=== PATIENT | male | born 1955 | race Caucasian/White ===

== ENCOUNTER → 2017-03-22 | Outpatient (CLI) | payer MEDICARE ==
--- NOTE | 2017-03-22 10:56 | RADIOLOGY REPORT (SQ) ---
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 Images reviewed with lung, soft tissue and bone windows. Reconstructed coronal a nd sagittal MPR images reviewed. All images stored on PACS. CT scan of the abdomen and pelvis performed with intravenous and with oral contrastusing helical scan carlie technique with dynamic intravenous contrast injection. Images reviewed with lung, soft tissue a nd bone windows. Reconstructed coronal and sagittal MPR images reviewed. Delayed images for evaluat ion of the urinary system also acquired and evaluated. All images stored on PACS. All CT scanners at this facility use dose modulation, iterative reconstruction, and/or weight based d osing when appropriate to reduce radiation dose to as low as reasonably achievable (ALARA). [facility]: Dose Right [facility]: CareDose [facility]: Dose Right [facility]: Teradose 4D [facility]: [employer] RADIATION DOSE: Up-to-date CT equipment and radiation dose reduction techniques were employed. CTDIv ol: 20.3 - 31.2 mGy. DLP: 4066 mGy-cm. . LIMITATIONS: None. FINDINGS: CHEST: LUNGS AND PLEURA: Lungs are hyperinflated from obstructive disease with increased interstitial markin gs around the periphery of both bases in the honeycomb pattern compatible with pulmonary fibrosis. No worrisome pulmonary nodules. No pleural effusion. No pneumothorax. HILAR AND MEDIASTINAL STRUCTURES: No identified masses or definite abnormal nodes. Stable 2.2 x 1.5 cm precarinal lymph node, stable 2.8 x 1.5 cm sub- carinal lymph node HEART AND VASCULAR STRUCTURES: No aneurysm or dissection. No central pulmonary emboli. No pericardi al effusion. HARDWARE: None. THYROID AND OTHER SOFT TISSUES: No masses. No adenopathy. BONES: Osteopenic, diffuse multilevel spondylotic change. OTHER: No other significant finding. ABDOMEN AND PELVIS: LIVER: Normal size. No masses or dilated ducts. SPLEEN: Normal size. No focal lesions. PANCREAS: No masses. No significant calcifications. No adjacent inflammation or peripancreatic fluid collections. Pancreatic duct not dilated. GALLBLADDER: Single large calcified stone in the gallbladder. No gallbladder wall thickening or ren cholecystic fluid. ADRENAL GLANDS: No significant masses or asymmetry. RIGHT KIDNEY AND URETER: No solid masses. No significant calcification. No hydronephrosis or hydroure ter. LEFT KIDNEY AND URETER: No solid masses. No significant calcification. No hydronephrosis or hydrouret er. AORTA AND VESSELS: No aneurysm. No dissection. Renal arteries, SMA, celiac without stenosis. RETROPERITONEUM: No retroperitoneal adenopathy, hemorrhage or masses. BOWEL AND PERITONEAL CAVITY: No masses or inflammatory changes. No free fluid or peritoneal masses. APPENDIX: Surgically absent ABDOMINAL WALL: No masses. No hernias. BONES: No significant or acute findings. PELVIS: No discrete bladder wall mass is identified. There is some mild thickening of the bladder ba se at the bladder trigone right slightly greater than left. No pelvic adenopathy. No free pelvic fl uid. IMPRESSION: No CT evidence of metastatic disease to the chest abdomen or pelvis given history of everette dder cancer. Subtle bladder wall thickening at the bladder trigone is present. Obstructive lung disease, pulmonary fibrosis Calcified stone in the gallbladder without gallbladder wall thickening. NORMAL CT OF THE ABDOMEN AND PELVIS WITH ORAL AND INTRAVENOUS CONTRAST. TECHNICAL DOCUMENTATION: JOB ID: [id number] Quality ID # [id number]: Final reports with documentation of one or more dose reduction techniques (e.g., Au tomated exposure control, adjustment of the mA and/or kV according to patient size, use of iterative reconstruction technique) 2010 [employer]- All Rights Reserved
== END ==
LOC: RAD 07:41
PROVIDERS: ATTEND Urology
DX: C67.0 Malignant neoplasm of trigone of bladder (principal)
CPT/HCPCS: 71260; 74177; 82565

== ENCOUNTER → 2017-06-01 | Outpatient (CLI) | payer MEDICARE ==
--- NOTE | 2017-06-01 15:51 | RADIOLOGY REPORT (SQ) ---
EXAM DESCRIPTION: U/S RETROPERITON (RENAL/AORTA) COMPLETED DATE/TIME: 06/01/2017 2:16 pm REASON FOR STUDY: MAL INES OF URINARY BLADDER, UNSPECIFIED SITE C67.9 MALIGNANT NEOPLASM OF BLADDER, UNSPECIFIED COMPARISON: None. TECHNIQUE: Dynamic and static grayscale images acquired of the kidneys and bladder and recorded on P ACS. Additional selected color Doppler and spectral images recorded. LIMITATIONS: None. FINDINGS: RIGHT KIDNEY: Normal size, 12.5 cm. Normal echogenicity. No solid or suspicious masses. No hydronephrosis. No calcifications. LEFT KIDNEY: Normal size, 12.8 cm. Normal echogenicity. No solid or suspicious masses. No hydronephr osis. No calcifications. BLADDER: Surgically absent OTHER FINDINGS: No other significant finding. IMPRESSION: Normal renal ultrasound. TECHNICAL DOCUMENTATION: JOB ID: [id number] [employer]- All Rights Reserved
== END ==
LOC: RAD 12:52
PROVIDERS: ATTEND Urology
DX: C67.9 Malignant neoplasm of bladder, unspecified (principal)
CPT/HCPCS: 76770

== ENCOUNTER 2020-10-12 17:12 | Inpatient (IN) | payer MEDICARE ==
[2020-10-12 18:50] LABS: ABSOLUTE BASOPHILS # (AUTO) 0.1 10^3/uL (0.0-0.2); ABSOLUTE MONOCYTES (AUTO) 0.6 10^3/uL (0.1-1.4); EOSINOPHILS % (AUTO) 0.5 % (0-6); HEMOGLOBIN 18.6 g/dL (13.5-17.0); LYMPHOCYTES % (AUTO) 15.2 % (13-45); MEAN CORPUSCULAR HEMOGLOBIN 28.1 pg (27.0-33.4); MEAN CORPUSCULAR HGB CONC 32.3 g/dL (32.0-36.0); MEAN CORPUSCULAR VOLUME 87 fl (80-97); MONOCYTES % (AUTO) 9.5 % (3-13); PLATELET COUNT 144 10^3/uL (150-450); RED BLOOD COUNT 6.61 10^6/uL (4.35-5.55); SEGMENTED NEUTROPHILS % (AUTO) 72.8 % (42-78); TOTAL CELLS COUNTED % (AUTO) 100 %; WHITE BLOOD COUNT 6.8 10^3/uL (4.0-10.5)
[2020-10-12 18:51] LABS: HEMATOCRIT 57.5 % (37.9-51.0)
--- NOTE | 2020-10-12 18:54 | RADIOLOGY REPORT (SQ) ---
EXAM DESCRIPTION: CHEST SINGLE VIEW IMAGES COMPLETED DATE/TIME: 10/12/2020 3:40 pm REASON FOR STUDY: shortness of breath COMPARISON: CT 03/22/2017 and single-view chest 09/15/2016 EXAM PARAMETERS: NUMBER OF VIEWS: One view. TECHNIQUE: Single frontal radiographic view of the chest acquired. RADIATION DOSE: NA LIMITATIONS: External leads partially obscure underlying structures. FINDINGS: LUNGS AND PLEURA: Diffuse opacities in the mid to lower left lung. No significant pleural effusion or pneumothorax. MEDIASTINUM AND HILAR STRUCTURES: No masses. Contour normal. HEART AND VASCULAR STRUCTURES: Heart is enlarged. BONES: No acute findings. HARDWARE: None in the chest. OTHER: No other significant finding. IMPRESSION: Asymmetric left lung opacities move concerning for acute infection. This may be superim posed on some mild chronic fibrotic change. TECHNICAL DOCUMENTATION: JOB ID: [id number] 2010 [employer]- All Rights Reserved Reading location - IP/workstation name: [email or web address]
[2020-10-12 18:58] LABS: ALBUMIN 3.8 g/dL (3.5-5.0); ALKALINE PHOSPHATASE 89 U/L (38-126); ANION GAP 8 (5-19); ASPARTATE AMINO TRANSFERASE 29 U/L (17-59); BILIRUBIN,DIRECT 0.9 mg/dL (0.0-0.4); BLOOD UREA NITROGEN 22 mg/dL (7-20); CALCIUM 9.5 mg/dL (8.4-10.2); CARBON DIOXIDE 30 mmol/L (22-30); CHLORIDE 97 mmol/L (98-107); GLUCOSE 112 mg/dL (75-110); TOTAL PROTEIN 7.2 g/dL (6.3-8.2)
--- NOTE | 2020-10-12 20:41 | ER Document Report ---
ED General - General Chief Complaint: Shortness Of Breath Stated Complaint: SHORT OF BREATH,LEG SWELLING Time Seen by Provider: 10/12/20 19:42 TRAVEL OUTSIDE OF THE [place] IN LAST 30 DAYS: No - HPI Notes: Patient is a 65-year-old male with a history of pulmonary fibrosis who presents to the emergency department for evaluation of shortness of breath. Is been going on for a little over a week. He has had swelling in his legs for about 2 weeks. He states he had some chest pain earlier today but denies any chest pain at this time. He described it as a tight and heavy sensation. He was short of breath with any sort of exertion. He does have some orthopnea. He does not wear oxygen at home. - Related Data Allergies/Adverse Reactions: No Known Allergies Allergy (Verified 09/09/16 13:59) Past Medical History - General Information source: Patient - Social History Smoking Status: Former Smoker Family History: Reviewed & Not Pertinent, Other - Past Medical History Cardiac Medical History: Reports: Hx Congestive Heart Failure - EF of 50% on a stress test in the past Denies: Hx Coronary Artery Disease, Hx Heart Attack, Hx Hypertension Pulmonary Medical History: Denies: Hx Asthma, Hx Bronchitis, Hx COPD, Hx Pneumonia Neurological Medical History: Denies: Hx Cerebrovascular Accident, Hx Seizures Endocrine Medical History: Reports: Hx Hyperthyroidism - TREATED WITH EASTMAN YEARS AGO, HAS BEEN ON THYROID SUPPLEMENTATION. Malignancy Medical History: Reports Other - Bladder cancer Musculoskeletal Medical History: Denies Hx Arthritis Traumatic Medical History: Reports: Hx Traumatic Brain Injury Past Surgical History: Reports: Hx Appendectomy, Other - Cystectomy/urostomy - Immunizations Hx Diphtheria, Pertussis, Tetanus Vaccination: Yes - 2012 Review of Systems - Review of Systems Constitutional: No symptoms reported EENT: No symptoms reported Cardiovascular: See HPI Respiratory: See HPI Gastrointestinal: No symptoms reported Genitourinary: No symptoms reported Musculoskeletal: No symptoms reported Skin: No symptoms reported Neurological/Psychological: No symptoms reported Physical Exam - Vital signs Vitals: Temp Pulse Resp BP Pulse Ox 97.5 F 81 20 119/75 92 10/12/20 17:56 10/12/20 17:56 10/12/20 17:56 10/12/20 17:56 10/12/20 17:56 - Notes Notes: This is a 65-year-old male who appears his stated age, in no acute distress. Vital signs reviewed, please refer to chart. Head is normocephalic, atraumatic. Pupils equal round, reactive to light. Neck is supple without meningismus. Heart is regular rate and rhythm. Lungs reveal bibasilar Rales. Abdomen is soft, nontender, normoactive bowel sounds throughout. Urostomy noted anteriorly with yellow urine, clear draining. No skin changes, stoma pink. Extremities without cyanosis, clubbing. 3+ pitting edema noted all the way to the thighs bilaterally. Posterior calves are nontender. Peripheral pulses are equal. Skin is warm and dry. Patient is awake, alert, neurological exam is nonfocal. Course - Re-evaluation Re-evalutation: 10/12/20 20:48 Patient presents emergency department for evaluation. Laboratory investigations as ordered through protocol. I am concerned about the possibility of congestive heart failure in this patient. He does not take any diuretics regularly.. He does have a significant oxygen requirement at this time. I placed an order for a Covid test as well. Patient is currently stable, we will continue to monitor. 10/12/20 22:43 Covid test is negative. X-ray was read by radiology as showing a possible atypical infectious component. To my eye I suspect more in the way of pulmonary vascular congestion, but will cover with antibiotics. His respiratory panel and Covid test are negative. ABG shows significant hypoxemia. At this time the patient is breathing comfortably, not tachypneic, and has an O2 saturation of 96% on 6 L. I suspect the patient has a baseline oxygen requirement, especially given his hemoglobin. I will contact medicine for admission. 10/12/20 22:49 Dr. Alejandro will come down and evaluate the patient. - Vital Signs Vital signs: Temp Pulse Resp BP Pulse Ox 98 F 81 20 119/75 96 10/12/20 20:38 10/12/20 17:56 10/12/20 17:56 10/12/20 17:56 10/12/20 20:38 - Laboratory Results Result Diagrams: 10/12/20 18:10 10/12/20 18:10 Laboratory Results Interpreted: 10/12/20 10/12/20 10/12/20 18:10 18:10 18:10 RBC 6.61 H Hgb 18.6 H Hct 57.5 H RDW 17.0 H Plt Count 144 L ABG pO2 ABG HCO3 ABG O2 Saturation Sodium 135.1 L Chloride 97 L BUN 22 H Glucose 112 H Total Bilirubin 2.0 H Direct Bilirubin 0.9 H NT-Pro-B Natriuret Pep 2220 H Urine Protein Urine Blood Urine Urobilinogen Ur Leukocyte Esterase 10/12/20 10/12/20 20:45 20:53 RBC Hgb Hct RDW Plt Count ABG pO2 62.4 L ABG HCO3 24.8 H ABG O2 Saturation 92.4 L Sodium Chloride BUN Glucose Total Bilirubin Direct Bilirubin NT-Pro-B Natriuret Pep Urine Protein 100 H Urine Blood SMALL H Urine Urobilinogen 4.0 H Ur Leukocyte Esterase MODERATE H Critical Laboratory Results Reviewed: No Critical Results - Radiology Results Radiology Results Interpreted: 10/12/20 20:49 Chest X-Ray 10/12/20 18:28 IMPRESSION: Asymmetric left lung opacities move concerning for acute infection. This may be superimposed on some mild chronic fibrotic change. Critical Radiology Results Reviewed: No Critical Results Discharge - Discharge Clinical Impression: Hypoxemia, Congestive heart failure Condition: Stable Disposition: ADMITTED INPATIENT Admitting Provider: [facility] Admitted: Telemetry
[2020-10-12 21:10] LABS: ARTERIAL BLOOD BASE EXCESS 0.6 mmol/L; ARTERIAL BLOOD H2CO3 1.17 mmol/L (1.05-1.35); ARTERIAL BLOOD HCO3 24.8 mmol/L (20-24); ARTERIAL BLOOD O2 SATURATION 92.4 % (94-98); ARTERIAL BLOOD PCO2 38.9 mmHg (35-45); ARTERIAL BLOOD PH 7.42 (7.35-7.45); ARTERIAL BLOOD PO2 62.4 mmHg (80-100)
[2020-10-12 21:22] LABS: ARTERIAL BLOOD FIO2 6LNC
[2020-10-12 21:34] LABS: APPEARANCE,URINE CLOUDY; BILIRUBIN,URINE NEGATIVE (NEGATIVE); COLOR,URINE AMBER; GLUCOSE, URINE NEGATIVE (NEGATIVE); KETONES,URINE NEGATIVE (NEGATIVE); LEUKOCYTE ESTERASE,URINE MODERATE (NEGATIVE); NITRITE,URINE NEGATIVE (NEGATIVE); PROTEIN,URINE 100 mg/dL (NEGATIVE); URINE SPECIFIC GRAVITY 1.015
[2020-10-12] MEDS ORDERED: FUROSEMIDE INJ/PF 40 MG/4 ML SDV IV ONE ×3 (22:14→23:45)
[2020-10-12] MEDS ORDERED: AZITHROMYCIN INJ 500 MG VIAL IV ONE ×2 (22:38→23:00)
[2020-10-12] MEDS ORDERED: CEFTRIAXONE 1 GM/D5W RTU 1 GM/50 ML RTUPB IV ONE (22:38)
[2020-10-12] MEDS ORDERED: FAMOTIDINE 20 MG TABLET PO ONE (23:45)
[2020-10-12] MEDS ORDERED: ACETAMINOPHEN 325 MG TABLET PO PRN (23:51)
[2020-10-12] MEDS ORDERED: ONDANSETRON HCL INJ/PF 4 MG/2 ML SDV IV PRN (23:51)
--- NOTE | 2020-10-13 00:08 | PDOC H&P ---
History of Present Illness Patient complains of: Worsening shortness of breath, bilateral leg swelling History of Present Illness: WINNIE OJEDA is a 65 year old male with a history of pulmonary fibrosis who was previously on home oxygen and hypothyroidism now presents to the ED with a progressively worsening shortness of breath and leg swelling. Patient states that his shortness of breath was initially with exertion but in the past 2 weeks has worsened to a level where he becomes short of breath even at rest. He also states that he has on and off leg swelling but over the past 2 weeks has been having markedly increased worsening of bilateral leg swelling. He states that he was previously on home oxygen for almost a year for pulmonary fibrosis but discontinued it by himself stating that he got tired of it. He does not remember how much oxygen he was on. He has been having occasional cough productive of scanty sputum but denies any chest pain, fever, chills, nausea, vomiting, dizziness, palpitation, orthopnea, PND, weakness of extremities or any change in his bowel habits. Past Medical History Cardiac Medical History: Reports: Congestive Heart Failure - EF of 50% on a stress test in the past Denies: Coronary Artery Disease, Myocardial Infarction, Hypertension Pulmonary Medical History: Denies: Asthma, Bronchitis, Chronic Obstructive Pulmonary Disease (COPD), Pneumonia Neurological Medical History: Denies: Seizures Endocrine Medical History: Reports: Hyperthyroidism - TREATED WITH EASTMAN YEARS AGO, HAS BEEN ON THYROID SUPPLEMENTATION. Malignancy Medical History: Reports: Other - Bladder cancer Musculoskeltal Medical History: Denies: Arthritis Traumatic Medical History: Reports: Traumatic Brain Injury Hematology: Denies: Anemia Past Surgical History Past Surgical History: Reports: Appendectomy, Other - Cystectomy/urostomy Social History Information Source: Patient Smoking Status: Former Smoker Electronic Cigarette use?: No Frequency of Alcohol Use: None Hx Recreational Drug Use: No Drugs: None Hx Prescription Drug Abuse: No - Advance Directive Resuscitation Status: Full Code Family History Family History: Reviewed & Not Pertinent, Other Parental Family History Reviewed: Yes Children Family History Reviewed: Yes Sibling(s) Family History Reviewed.: Yes Medication/Allergy Home Medications: Levothyroxine Sodium [Synthroid 0.1 mg Tablet] 200 mcg PO DAILY #60 tablet 09/22/12 Allergies/Adverse Reactions: No Known Allergies Allergy (Verified 09/09/16 13:59) Review of Systems Constitutional: PRESENT: as per HPI Eyes: ABSENT: visual disturbances Ears: ABSENT: hearing changes Cardiovascular: PRESENT: as per HPI Respiratory: PRESENT: as per HPI Gastrointestinal: ABSENT: abdominal pain, constipation, diarrhea, hematemesis, hematochezia, nausea, vomiting Genitourinary: PRESENT: dysuria. ABSENT: hematuria Musculoskeletal: ABSENT: joint swelling Integumentary: ABSENT: rash, wounds Neurological: ABSENT: abnormal gait, abnormal speech, confusion, dizziness, focal weakness, syncope Psychiatric: ABSENT: anxiety, depression, homidical ideation, suicidal ideation Endocrine: ABSENT: polydipsia, polyuria Hematologic/Lymphatic: ABSENT: easy bleeding, easy bruising Physical Exam Vital Signs: Temp Pulse Resp BP Pulse Ox 98 F 81 20 119/75 96 10/12/20 20:38 10/12/20 17:56 10/12/20 17:56 10/12/20 17:56 10/12/20 20:38 Intake & Output 10/11/20 10/12/20 10/13/20 06:59 06:59 06:59 Weight 110.677 kg Additional comments: GENERAL APPEARANCE: Alert and oriented x3, in no acute distress HEENT: Normocephalic and atraumatic. No scleral icterus. Moist oral mucosa NECK: Supple. No lymphadenopathy or tenderness. Has elevated JVD CHEST: Symmetric. Nontender to palpation. LUNGS: Clear with good air entry bilaterally. Has coarse crackles on the left lower lung field HEART: Regular rate and rhythm with normal S1 and S2. No murmurs, gallops, or rubs. ABDOMEN: Flat, soft, active bowel sounds, no direct or rebound tenderness. No organomegaly detected. No CVA tenderness EXTREMITIES: No cyanosis, clubbing. Has +3 pitting edema up to the level of knees bilaterally MUSCULOSKELETAL: No deformity, atrophy or swelling noted PSYCHIATRIC: Recent and remote memory is intact. SKIN: Warm, dry, and well perfused. No lesions or rashes are noted. NEUROLOGIC: No focal sensory or motor deficits are noted. Results Laboratory Results: 10/12/20 18:10 10/12/20 18:10 10/12/20 10/12/20 10/12/20 18:10 18:10 18:10 WBC 6.8 RBC 6.61 H Hgb 18.6 H Hct 57.5 H MCV 87 MCH 28.1 MCHC 32.3 RDW 17.0 H Plt Count 144 L Seg Neutrophils % 72.8 Carbonic Acid HCO3/H2CO3 Ratio ABG pH ABG pCO2 ABG pO2 ABG HCO3 ABG O2 Saturation ABG Base Excess FiO2 Sodium 135.1 L Potassium 4.0 Chloride 97 L Carbon Dioxide 30 Anion Gap 8 BUN 22 H Creatinine 1.03 Est GFR ( Amer) > 60 Glucose 112 H Lactic Acid 1.6 Calcium 9.5 Total Bilirubin 2.0 H AST 29 Alkaline Phosphatase 89 Total Protein 7.2 Albumin 3.8 Urine Color Urine Appearance Urine pH Ur Specific Surry Urine Protein Urine Glucose (UA) Urine Ketones Urine Blood Urine Nitrite Ur Leukocyte Esterase Urine WBC (Auto) Urine RBC (Auto) 10/12/20 10/12/20 20:45 20:53 WBC RBC Hgb Hct MCV MCH MCHC RDW Plt Count Seg Neutrophils % Carbonic Acid 1.17 HCO3/H2CO3 Ratio 21:1 ABG pH 7.42 ABG pCO2 38.9 ABG pO2 62.4 L ABG HCO3 24.8 H ABG O2 Saturation 92.4 L ABG Base Excess 0.6 FiO2 6LNC Sodium Potassium Chloride Carbon Dioxide Anion Gap BUN Creatinine Est GFR ( Amer) Glucose Lactic Acid Calcium Total Bilirubin AST Alkaline Phosphatase Total Protein Albumin Urine Color ELIZABETH Urine Appearance CLOUDY Urine pH 7.0 Ur Specific [place] 1.015 Urine Protein 100 H Urine Glucose (UA) NEGATIVE Urine Ketones NEGATIVE Urine Blood SMALL H Urine Nitrite NEGATIVE Ur Leukocyte Esterase MODERATE H Urine WBC (Auto) 66 Urine RBC (Auto) 10/12/20 10/12/20 18:10 18:10 Troponin I < 0.012 NT-Pro-B Natriuret Pep 2220 H Impressions: Chest X-Ray 10/12/20 18:28 IMPRESSION: Asymmetric left lung opacities move concerning for acute infection. This may be superimposed on some mild chronic fibrotic change. Assessment and Plan - Diagnosis (1) Acute and chronic respiratory failure with hypoxia Is this a current diagnosis for this admission?: Yes Plan: Patient presents with worsening of shortness of breath Has a known history of pulmonary fibrosis and was previously on home oxygen ABG showed pH/PCO2/PO2 of 7.4 respectively while on [address] of the chest consistent with chronic fibrotic changes with new masses on the left lower lung concerning for malignancy Continue intranasal oxygen use, may need transitioning to Oxymizer or high flow oxygen Closely monitor respiratory parameters for any sign of impending failure Continue heart failure as stated below (2) New onset of congestive heart failure Is this a current diagnosis for this admission?: Yes Plan: Likely right-sided heart failure/cor pulmonale due to pulmonary hypertension from extensive lung fibrosis Patient has elevated JVD, has bilateral pitting edema, elevated BNP of 2220 Chest imaging both x-ray and CT showed extensive fibrosis with no significant signs of volume overload Has markedly increased hemoglobin and hematocrit Continue intranasal oxygen Strict I&O's, daily weights and fluid restriction Started on Lasix 40 mg IV twice daily Continue telemetry monitoring Echocardiogram in the morning Consulted cardiology (3) Secondary polycythemia Is this a current diagnosis for this admission?: Yes Plan: Likely due to pulmonary hypertension with cor pulmonale of the right upper Continue treating underlying cause Closely monitor H&H Continue intranasal oxygen (4) Pulmonary fibrosis Is this a current diagnosis for this admission?: Yes Plan: Patient with a known history of fibrosis Was previously on home oxygen Current imaging shows advanced pulmonary fibrosis Likely cause of new onset heart failure Patient likely to need long-term home oxygen Consider pulmonary consult (5) Urinary tract infection Is this a current diagnosis for this admission?: Yes Plan: UA was suggestive of UTI Currently on ceftriaxone Follow-up with urine culture/sensitivity and adjust antibiotics accordingly (6) Obesity (BMI 30-39.9) Is this a current diagnosis for this admission?: Yes Plan: Partly due to volume overload from new onset heart failure Continue IV diuretics, monitor weight daily (7) Hypothyroidism Is this a current diagnosis for this admission?: Yes Plan: Currently denies hypo or hyperthyroid symptoms Obtain TSH in the morning Continue levothyroxine (8) Lung mass Is this a current diagnosis for this admission?: Yes Plan: CT chest showed 2 lung masses near left diaphragm Concerning for malignancy Consider IR guided biopsy once hypoxic respiratory failure improves Consider pulmonary consult - Time Time Spent with patient: 35 or more minutes Total Critical Time (Minutes): 45 Medications reviewed and adjusted accordingly: Yes Anticipated Discharge Disposition: Home, Self Care Anticipated Discharge Timeframe: within 72 hours - Inpatient Certification Based on my medical assessment, after consideration of the patient's comorbidities, presenting symptoms, or acuity I expect that the services needed warrant INPATIENT care.: Yes I certify that my determination is in accordance with my understanding of Medicare's requirements for reasonable and necessary INPATIENT services [42 CFR 412.3e].: Yes Medical Necessity: Significant Comorbidiites Make Outpatient Treatment Too Risky, Need Close Monitoring Due to Risk of Patient Decompensation, Need For Continuous Telemetry Monitoring, Need for IV Antibiotics, Risk of Complication if Not Cared For in Hospital Post Hospital Care: D/C or Transfer Summary
--- NOTE | 2020-10-13 01:15 | RADIOLOGY REPORT (SQ) ---
CLINICAL INDICATION: Hypoxic respiratory failure. . TECHNIQUE: CT arteriography was obtained of the chest with multiplanar MIP and/or 3-D angiographic reconstructions. This exam was performed according to our departmental dose-optimization program, which includes automated exposure control, adjustment of the mA and/or kV according to patient size and/or use of iterative reconstruction techniques. COMPARISON: None available. CORRELATION: None. FINDINGS: Adequate contrast bolus. Average Hounsfield unit measurement within main pulmonary artery segment of 331. Artifact from venous opacification. Motion artifact There is no evidence of pulmonary embolus. Extrinsic compression left lung base with resultant flow artifact. Thoracic aorta is of normal caliber. Thoracic aorta is unopacified with intravascular contrast The heart is enlarged with coronary calcification. No pericardial effusion. Enlarged left hilar lymph node measuring 2.1 x 2.9 cm. The lungs show severe emphysematous changes bilaterally with fibrotic changes. There is a rounded presumed mass lesion left upper lobe anteriorly measuring 5.5 x 5.8 cm, series 4 image 49. There is a second masslike abnormality left lower lobe posterior medial measuring approximately 4.2 x 5.8 cm, series 3 image 78. Pleural thickening is seen left hemithorax. The loculated fluid. No acute process is seen within the right lung. Visualized abdominal contents demonstrate fullness to the left adrenal. A nodule is identified within the retroperitoneal fat posterior to the left kidney measuring 1.4 x 1.9 cm series 3 image 130. Cholelithiasis. Visualized bones demonstrate age-appropriate osteoarthritis. Old posttraumatic change.. IMPRESSION: No evidence of pulmonary embolus. Chronic fibrotic changes bilaterally.. There are 2 rounded mass lesions identified left hemithorax, suspicious for neoplasm. Left pleural reaction or perhaps loculated effusion. Prominent left hilar lymph node, suspicious for regional spread of disease. Left adrenal mass, viewed with suspicion for remote metastatic disease given the pulmonary lesions . Addendum: Prior CT September 15, 2016 has been retrieved. The fibrotic changes were present on that examination. The pleural-based mass lesions and pleural reaction left hemithorax are adverse change from prior. The prominent left hilar lymph node is adverse change from prior..
[2020-10-13 08:39] LABS: ABSOLUTE EOSINOPHILS # (AUTO) 0.1 10^3/uL (0.0-0.6); ABSOLUTE LYMPHOCYTES (AUTO) 1.1 10^3/uL (0.5-4.7); ABSOLUTE MONOCYTES (AUTO) 0.6 10^3/uL (0.1-1.4); ABSOLUTE NEUT (AUTO) 3.7 10^3/uL (1.7-8.2); BASOPHILS % (AUTO) 0.4 % (0-2); EOSINOPHILS % (AUTO) 0.9 % (0-6); HEMOGLOBIN 18.7 g/dL (13.5-17.0); LYMPHOCYTES % (AUTO) 20.6 % (13-45); MEAN CORPUSCULAR HEMOGLOBIN 28.4 pg (27.0-33.4); MEAN CORPUSCULAR HGB CONC 32.4 g/dL (32.0-36.0); MEAN CORPUSCULAR VOLUME 88 fl (80-97); MONOCYTES % (AUTO) 10.2 % (3-13); PLATELET COUNT 132 10^3/uL (150-450); RED BLOOD COUNT 6.58 10^6/uL (4.35-5.55); RED CELL DISTRIBUTION WIDTH 17.1 % (11.5-14.0); SEGMENTED NEUTROPHILS % (AUTO) 67.9 % (42-78); TOTAL CELLS COUNTED % (AUTO) 100 %; WHITE BLOOD COUNT 5.5 10^3/uL (4.0-10.5)
[2020-10-13 08:49] LABS: HEMATOCRIT 57.7 % (37.9-51.0)
[2020-10-13 08:57] LABS: ANION GAP 10 (5-19)
[2020-10-13 09:21] LABS: BLOOD UREA NITROGEN 20 mg/dL (7-20); CALCIUM 9.6 mg/dL (8.4-10.2); CARBON DIOXIDE 30 mmol/L (22-30); CHLORIDE 100 mmol/L (98-107); GLUCOSE 95 mg/dL (75-110); POTASSIUM 4.8 mmol/L (3.6-5.0)
[2020-10-13] MEDS: FUROSEMIDE INJ/PF 40 MG/4 ML SDV IV SCH ×2 (11:25→23:54)
[2020-10-13] MEDS: FAMOTIDINE 20 MG TABLET PO SCH ×2 (11:26→23:55)
[2020-10-13] MEDS: ENOXAPARIN SODIUM INJ 40 MG/0.4 ML DISP.SYRIN SUBCUT SCH (11:27)
[2020-10-13 12:00] LABS: FREE T3 1.57 pg/mL (2.77-5.27); FREE T4 (FREE THYROXINE) 0.76 ng/dL (0.78-2.19)
--- NOTE | 2020-10-13 15:24 | PDOC PROGRESS REPORT ---
Subjective Date:: 10/13/20 Subjective:: WINNIE OJEDA is a 65 year old male with a history of pulmonary fibrosis who was previously on home oxygen and hypothyroidism who was admitted 10/12/2020 with acute on chronic respiratory failure secondary to acute CHF exacerbation in the setting of pulmonary fibrosis. Patient was seen on morning rounds. He is found sitting up to the edge of the bed on supplemental oxygen via nonrebreather at 15 L/min; SPO2 was 100%. Patient was comfortable, speaking full sentences. He advised that he was previously prescribed home O2 for chronic respiratory failure secondary to pulmonary fibrosis and emphysema. He states that he became frustrated with oxygen equipment and took himself off of this a couple of years ago. He states that he is only begun to have trouble with dyspnea in the last 2 to 3 weeks. He notes that he had gradually worsening bilateral lower extremity edema over the same time period. He was transitioned to nasal cannula at 6 L/min gradually titrated down throughout my assessment. He was left on 3 L/min with an SPO2 of 94%. Continue to be conversational without increased work of breathing. He denies fever, chills, chest pain, palpitations, cough or orthopnea, abdominal pain, nausea vomiting or diarrhea. He has no other questions or concerns at this time. No concerns per nursing. Reason For Visit: ACUTE CHRONIC HYPOXIC RESPIRATORY FAILURE,NEW Physical Exam Vital Signs: Temp Pulse Resp BP Pulse Ox 97.3 F 79 20 118/83 92 10/13/20 11:38 10/13/20 11:38 10/13/20 11:38 10/13/20 11:38 10/13/20 11:38 Intake & Output 10/12/20 10/13/20 10/14/20 06:59 06:59 06:59 Intake Total 50 240 Output Total 700 350 Balance -650 -110 Weight 112 kg General appearance: PRESENT: no acute distress, cooperative, disheveled, obese, well-developed, well-nourished Head exam: PRESENT: atraumatic, normocephalic Eye exam: PRESENT: conjunctiva pink, EOMI, PERRLA. ABSENT: scleral icterus Mouth exam: PRESENT: moist, tongue midline Teeth exam: PRESENT: poor dentation Respiratory exam: PRESENT: crackles - Bibasilar, symmetrical, unlabored, other - Supplemental oxygen by nasal cannula. ABSENT: rales, rhonchi, wheezes Cardiovascular exam: PRESENT: RRR. ABSENT: diastolic murmur, rubs, systolic murmur Vascular exam: PRESENT: normal capillary refill GI/Abdominal exam: PRESENT: other - urostomy Extremities exam: PRESENT: full ROM, +2 edema - BLE pitting edema. ABSENT: calf tenderness, clubbing, pedal edema Neurological exam: PRESENT: alert, awake, oriented to person, oriented to place, oriented to time, oriented to situation, CN II-XII grossly intact. ABSENT: motor sensory deficit Psychiatric exam: PRESENT: appropriate affect, normal mood. ABSENT: homicidal ideation, suicidal ideation Skin exam: PRESENT: dry, intact, warm, other - Chronic venous stasis changes bilateral lower extremities.. ABSENT: cyanosis, rash Results Laboratory Results: 10/13/20 08:08 10/13/20 08:08 10/12/20 10/12/20 10/12/20 18:10 18:10 18:10 WBC 6.8 RBC 6.61 H Hgb 18.6 H Hct 57.5 H MCV 87 MCH 28.1 MCHC 32.3 RDW 17.0 H Plt Count 144 L Seg Neutrophils % 72.8 Carbonic Acid HCO3/H2CO3 Ratio ABG pH ABG pCO2 ABG pO2 ABG HCO3 ABG O2 Saturation ABG Base Excess FiO2 Sodium 135.1 L Potassium 4.0 Chloride 97 L Carbon Dioxide 30 Anion Gap 8 BUN 22 H Creatinine 1.03 Est GFR ( Amer) > 60 Glucose 112 H Lactic Acid 1.6 Calcium 9.5 Magnesium Total Bilirubin 2.0 H AST 29 Alkaline Phosphatase 89 Total Protein 7.2 Albumin 3.8 TSH Free T4 Free T3 pg/mL Urine Color Urine Appearance Urine pH Ur Specific [place] Urine Protein Urine Glucose (UA) Urine Ketones Urine Blood Urine Nitrite Ur Leukocyte Esterase Urine WBC (Auto) Urine RBC (Auto) 10/12/20 10/12/20 10/13/20 20:45 20:53 08:08 WBC 5.5 RBC 6.58 H Hgb 18.7 H Hct 57.7 H MCV 88 MCH 28.4 MCHC 32.4 RDW 17.1 H Plt Count 132 L Seg Neutrophils % 67.9 Carbonic Acid 1.17 HCO3/H2CO3 Ratio 21:1 ABG pH 7.42 ABG pCO2 38.9 ABG pO2 62.4 L ABG HCO3 24.8 H ABG O2 Saturation 92.4 L ABG Base Excess 0.6 FiO2 6LNC Sodium Potassium Chloride Carbon Dioxide Anion Gap BUN Creatinine Est GFR ( Amer) Glucose Lactic Acid Calcium Magnesium Total Bilirubin AST Alkaline Phosphatase Total Protein Albumin TSH Free T4 Free T3 pg/mL Urine Color ELIZABETH Urine Appearance CLOUDY Urine pH 7.0 Ur Specific [place] 1.015 Urine Protein 100 H Urine Glucose (UA) NEGATIVE Urine Ketones NEGATIVE Urine Blood SMALL H Urine Nitrite NEGATIVE Ur Leukocyte Esterase MODERATE H Urine WBC (Auto) 66 Urine RBC (Auto) 10/13/20 10/13/20 10/13/20 08:08 08:08 08:08 WBC RBC Hgb Hct MCV MCH MCHC RDW Plt Count Seg Neutrophils % Carbonic Acid HCO3/H2CO3 Ratio ABG pH ABG pCO2 ABG pO2 ABG HCO3 ABG O2 Saturation ABG Base Excess FiO2 Sodium 139.9 Potassium 4.8 Chloride 100 Carbon Dioxide 30 Anion Gap 10 BUN 20 Creatinine 1.10 Est GFR ( Amer) > 60 Glucose 95 Lactic Acid Calcium 9.6 Magnesium 1.7 Total Bilirubin AST Alkaline Phosphatase Total Protein Albumin TSH 13.70 H Free T4 0.76 L Free T3 pg/mL 1.57 L Urine Color Urine Appearance Urine pH Ur Specific [place] Urine Protein Urine Glucose (UA) Urine Ketones Urine Blood Urine Nitrite Ur Leukocyte Esterase Urine WBC (Auto) Urine RBC (Auto) 10/12/20 10/12/20 10/13/20 18:10 18:10 02:06 Troponin I < 0.012 < 0.012 NT-Pro-B Natriuret Pep 2220 H 10/13/20 10/13/20 10:33 12:35 Troponin I Cancelled < 0.012 NT-Pro-B Natriuret Pep Impressions: Chest/Abdomen CTA 10/12/20 00:00 IMPRESSION: No evidence of pulmonary embolus. Chronic fibrotic changes bilaterally.. There are 2 rounded mass lesions identified left hemithorax, suspicious for neoplasm. Left pleural reaction or perhaps loculated effusion. Prominent left hilar lymph node, suspicious for regional spread of disease. Left adrenal mass, viewed with suspicion for remote metastatic disease given the pulmonary lesions . Addendum: Prior CT September 15, 2016 has been retrieved. The fibrotic changes were present on that examination. The pleural-based mass lesions and pleural reaction left hemithorax are adverse change from prior. The prominent left hilar lymph node is adverse change from prior.. Chest X-Ray 10/12/20 18:28 IMPRESSION: Asymmetric left lung opacities move concerning for acute infection. This may be superimposed on some mild chronic fibrotic change. Assessment and Plan - Diagnosis (1) Acute and chronic respiratory failure with hypoxia Is this a current diagnosis for this admission?: Yes Plan: Multifactorial secondary to new onset/acute CHF in the setting of emphysema and pulmonary fibrosis. Patient presents with worsening of shortness of breath Has a known history of pulmonary fibrosis and was previously on home oxygen ABG showed pH/PCO2/PO2 of 7.4 respectively while on [address] of the chest consistent with chronic fibrotic changes with new masses on the left lower lung concerning for malignancy Management as below. (2) New onset of congestive heart failure Is this a current diagnosis for this admission?: Yes Plan: Likely right-sided heart failure/cor pulmonale due to pulmonary hypertension from extensive lung fibrosis Patient has elevated JVD, has bilateral pitting edema proBNP of 2220 Chest imaging both x-ray and CT showed extensive fibrosis with no significant signs of volume overload Echocardiogram pending Continue telemetry monitoring Start low dose Toprol XL Avoid ALFA/ARB until echo; may benefit from Entresto Continue Lasix 40 mg IV twice daily Strict I&O's, daily weights Cardiac diet and fluid restriction (3) Lung mass Is this a current diagnosis for this admission?: Yes Plan: CT chest showed 2 lung masses near left diaphragm Concerning for malignancy Consider IR guided biopsy once hypoxic respiratory failure improves Consider pulmonary consult (4) Pulmonary fibrosis Is this a current diagnosis for this admission?: Yes Plan: Patient with a known history of fibrosis Was previously on home oxygen Current imaging shows advanced pulmonary fibrosis Likely cause of new onset heart failure Patient likely to need long-term home oxygen Consider pulmonary consult (5) Secondary polycythemia Is this a current diagnosis for this admission?: Yes Plan: Likely due to pulmonary hypertension with cor pulmonale of the right upper Continue treating underlying cause Closely monitor H&H Continue intranasal oxygen (6) Urinary tract infection Is this a current diagnosis for this admission?: Yes Plan: UA was suggestive of UTI Urine culture w/ 2 strands Gram Negative Rods Blood culture pending Continue on ceftriaxone Follow-up with urine culture/sensitivity and adjust antibiotics accordingly (7) Hypothyroidism Is this a current diagnosis for this admission?: Yes Plan: Currently denies hypo or hyperthyroid symptoms Thyroid panel confirms under treated; ? medication compliance. Continue levothyroxine Close PCP follow up (8) Obesity (BMI 30-39.9) Is this a current diagnosis for this admission?: Yes Plan: Partly due to volume overload from new onset heart failure Continue IV diuretics, monitor weight daily Cardiac diet - Time Time Spent with patient: 35 or more minutes Medications reviewed and adjusted accordingly: Yes Anticipated Discharge Disposition: Home with Home Health Anticipated Discharge Timeframe: TBD
--- NOTE | 2020-10-13 20:36 | EKG REPORT ---
SEVERITY:- ABNORMAL ECG - SINUS RHYTHM ATRIAL PREMATURE COMPLEX INFERIOR INFARCT, AGE INDETERMINATE ANTERIOR INFARCT, OLD : Confirmed by: Carlee Burleson MD 13-Oct-2020 20:35:01
[2020-10-13] MEDS ORDERED: AZITHROMYCIN 500 MG in DEXTROSE 5%-WATER 250 ML IV SCH (22:00)
[2020-10-13] MEDS ORDERED: CEFTRIAXONE 1 GM/D5W RTU 1 GM/50 ML RTUPB IV SCH (22:00)
[2020-10-14] MEDS ORDERED: CEFTRIAXONE 1 GM/D5W RTU 1 GM/50 ML RTUPB IV ONE (03:00)
[2020-10-14 05:37] LABS: HEMATOCRIT 52.6 % (37.9-51.0); MEAN CORPUSCULAR HEMOGLOBIN 28.4 pg (27.0-33.4); MEAN CORPUSCULAR HGB CONC 32.3 g/dL (32.0-36.0); MEAN CORPUSCULAR VOLUME 88 fl (80-97); PLATELET COUNT 113 10^3/uL (150-450); RED BLOOD COUNT 5.98 10^6/uL (4.35-5.55); RED CELL DISTRIBUTION WIDTH 17.3 % (11.5-14.0); WHITE BLOOD COUNT 5.3 10^3/uL (4.0-10.5)
[2020-10-14] MEDS: LEVOTHYROXINE SODIUM 0.1 MG TABLET PO SCH (05:56)
[2020-10-14 05:58] LABS: ANION GAP 6 (5-19); BLOOD UREA NITROGEN 20 mg/dL (7-20); CALCIUM 8.8 mg/dL (8.4-10.2); CARBON DIOXIDE 30 mmol/L (22-30); CHLORIDE 101 mmol/L (98-107); GLUCOSE 84 mg/dL (75-110); POTASSIUM 4.3 mmol/L (3.6-5.0)
[2020-10-14] MEDS ORDERED: LEVOTHYROXINE SODIUM 0.1 MG TABLET PO SCH (06:00)
[2020-10-14] MEDS: ENOXAPARIN SODIUM INJ 40 MG/0.4 ML DISP.SYRIN SUBCUT SCH (09:02)
[2020-10-14] MEDS: FUROSEMIDE INJ/PF 40 MG/4 ML SDV IV SCH ×2 (09:10→21:54)
[2020-10-14] MEDS: FAMOTIDINE 20 MG TABLET PO SCH ×2 (09:10→21:55)
--- NOTE | 2020-10-14 15:45 | PDOC PROGRESS REPORT ---
Subjective Date:: 10/14/20 Subjective:: WINNIE OJEDA is a 65 year old male with a history of pulmonary fibrosis who was previously on home oxygen and hypothyroidism who was admitted 10/12/2020 with acute on chronic respiratory failure secondary to acute CHF exacerbation in the setting of pulmonary fibrosis. Patient was seen on morning rounds. He is found sitting up to the edge of the bed on supplemental oxygen via nasal cannula at 4 L/min. Patient was comfortable, speaking full sentences. He reports that his breathing and bilateral lower leg edema is improved today. He does continue to have left posterior chest wall pain that occasionally radiates to his shoulder. He asks multiple times to have his lipoma looked at; desires to have it removed while here in the hospital. Otherwise, he is feeling much better. Denies fever, chills, chest pain, palpitations, cough or orthopnea, abdominal pain, nausea vomiting or diarrhea. He has no other questions or concerns at this time. No concerns per nursing. Reason For Visit: ACUTE CHRONIC HYPOXIC RESPIRATORY FAILURE,NEW Physical Exam Vital Signs: Temp Pulse Resp BP Pulse Ox 97.6 F 70 18 103/73 91 L 10/14/20 12:03 10/14/20 14:00 10/14/20 12:03 10/14/20 12:03 10/14/20 13:54 Intake & Output 10/13/20 10/14/20 10/15/20 06:59 06:59 06:59 Intake Total 50 701 337 Output Total 700 2024 Balance -650 -1324 337 Weight 112 kg 112 kg 105.4 kg General appearance: PRESENT: no acute distress, cooperative, well-developed, well-nourished Head exam: PRESENT: atraumatic, normocephalic Eye exam: PRESENT: conjunctiva pink, EOMI, PERRLA. ABSENT: scleral icterus Mouth exam: PRESENT: moist, tongue midline Teeth exam: PRESENT: poor dentation Respiratory exam: PRESENT: clear to auscultation mariah, symmetrical, unlabored, other - Supplemental oxygen by nasal cannula. ABSENT: rales, rhonchi, wheezes Cardiovascular exam: PRESENT: RRR. ABSENT: diastolic murmur, rubs, systolic murmur Pulses: PRESENT: normal dorsalis pedis pul Vascular exam: PRESENT: normal capillary refill GI/Abdominal exam: PRESENT: other - Urostomy Rectal exam: PRESENT: deferred Extremities exam: PRESENT: full ROM, +2 edema - BLE; slightly decreased from yesterday.. ABSENT: calf tenderness, clubbing, pedal edema Musculoskeletal exam: PRESENT: ambulatory Neurological exam: PRESENT: alert, awake, oriented to person, oriented to place, oriented to time, oriented to situation, CN II-XII grossly intact. ABSENT: motor sensory deficit Psychiatric exam: PRESENT: appropriate affect, normal mood. ABSENT: homicidal ideation, suicidal ideation Skin exam: PRESENT: dry, intact, warm, other - Chronic venous stasis changes bilateral lower extremities. ABSENT: cyanosis, rash Results Laboratory Results: 10/14/20 04:45 10/14/20 04:45 10/14/20 10/14/20 04:45 04:45 WBC 5.3 RBC 5.98 H Hgb 17.0 Hct 52.6 H MCV 88 MCH 28.4 MCHC 32.3 RDW 17.3 H Plt Count 113 L Sodium 136.7 L Potassium 4.3 Chloride 101 Carbon Dioxide 30 Anion Gap 6 BUN 20 Creatinine 0.92 Est GFR ( Amer) > 60 Glucose 84 Calcium 8.8 10/12/20 20:45 Clean Catch Midstream Urine Culture - Final Escherichia Coli Proteus Mirabilis 10/12/20 10/12/20 10/13/20 18:10 18:10 02:06 Troponin I < 0.012 < 0.012 NT-Pro-B Natriuret Pep 2220 H 10/13/20 10/13/20 10:33 12:35 Troponin I Cancelled < 0.012 NT-Pro-B Natriuret Pep Impressions: Chest/Abdomen CTA 10/12/20 00:00 IMPRESSION: No evidence of pulmonary embolus. Chronic fibrotic changes bilaterally.. There are 2 rounded mass lesions identified left hemithorax, suspicious for neoplasm. Left pleural reaction or perhaps loculated effusion. Prominent left hilar lymph node, suspicious for regional spread of disease. Left adrenal mass, viewed with suspicion for remote metastatic disease given the pulmonary lesions . Addendum: Prior CT September 15, 2016 has been retrieved. The fibrotic changes were present on that examination. The pleural-based mass lesions and pleural reaction left hemithorax are adverse change from prior. The prominent left hilar lymph node is adverse change from prior.. Chest X-Ray 10/12/20 18:28 IMPRESSION: Asymmetric left lung opacities move concerning for acute infection. This may be superimposed on some mild chronic fibrotic change. Assessment and Plan - Diagnosis (1) Acute and chronic respiratory failure with hypoxia Is this a current diagnosis for this admission?: Yes Plan: Multifactorial secondary to new onset/acute CHF in the setting of emphysema and pulmonary fibrosis. Patient presents with worsening of shortness of breath Has a known history of pulmonary fibrosis and was previously on home oxygen ABG showed pH/PCO2/PO2 of 7.4 / respectively while on 6 L intranasal oxyge n CT of the chest consistent with chronic fibrotic changes with new masses on the left lower lung concerning for malignancy Management as below. (2) New onset of congestive heart failure Is this a current diagnosis for this admission?: Yes Plan: New diagnosis. Patient has elevated JVD, has bilateral pitting edema proBNP of 2220 Chest imaging both x-ray and CT showed extensive fibrosis with no significant signs of volume overload Echocardiogram pending Negative 1.5L; monitor weight Continue telemetry monitoring Continue low dose Toprol XL Avoid ALFA/ARB until echo results are available; may benefit from Entresto Continue Lasix 40 mg IV twice daily Strict I&O's, daily weights Cardiac diet and fluid restriction (3) Lung mass Is this a current diagnosis for this admission?: Yes Plan: CT chest showed 2 lung masses near left diaphragm Concerning for malignancy Dr. Rueda consulted. Further evaluation per Oncology's recommendations. (4) Pulmonary fibrosis Is this a current diagnosis for this admission?: Yes Plan: Patient with a known history of fibrosis Was previously on home oxygen Current imaging shows advanced pulmonary fibrosis Now oxygen dependent; will require home O2 at discharge. Consider pulmonary consult (5) Secondary polycythemia Is this a current diagnosis for this admission?: Yes Plan: Likely due to pulmonary hypertension with cor pulmonale of the right upper Continue treating underlying cause Closely monitor H&H Continue intranasal oxygen (6) Urinary tract infection Is this a current diagnosis for this admission?: Yes Plan: UA was suggestive of UTI Urine culture showed E. coli and Proteus mirabilis Blood culture negative at 24 hours Continue on ceftriaxone (7) Hypothyroidism Is this a current diagnosis for this admission?: Yes Plan: Currently denies hypo or hyperthyroid symptoms Thyroid panel confirms under treated; ? medication compliance. Continue levothyroxine Close PCP follow up (8) Obesity (BMI 30-39.9) Is this a current diagnosis for this admission?: Yes Plan: Partly due to volume overload from new onset heart failure Continue IV diuretics, monitor weight daily Cardiac diet - Time Time Spent with patient: 35 or more minutes Medications reviewed and adjusted accordingly: Yes Anticipated Discharge Disposition: Home with Home Health Anticipated Discharge Timeframe: TBD
--- NOTE | 2020-10-14 20:11 | XCELERA REPORT ---
[address] [address] Transthoracic Echocardiogram Report Name: WINNIE OJEDA Age: 65 yrs Gender: Male : 1955 Patient Status: Inpatient Patient Location: [address] [place], [place] [id number] Study Date: 10/14/2020 10:22 AM Height: 70 in Weight: 244 lb BSA: 2.3 m2 Procedure: A complete two-dimensional transthoracic echocardiogram was performed (2D, M-mode, spectral and color flow Doppler). The study was technically difficult with many images being suboptimal in quality. Reason For Study: New onset right-sided heart failure Ordering Physician: UMESH SHEEHAN Performed By: Beata Skinner Interpretation Summary FINDINGS: technically difficult. LEFT VENTRICLE: LV Systolic function: LVEF is felt to be within normal limits. Best estimate is approximately LVEF is 60 to 65%. LV Diastolic Function: Grade II diastolic dysfunction noted. Wall motion: not all wall segment were well visualised. Regional wall motion cannot be accurately commented upon. Left ventricular chamber size: is within normal limit. Left ventricular wall thickness: is increased indicative of Mild LVH. RIGHT VENTRICLE: RV systolic function: is felt to be mildly reduced. Right Ventricle Size: severely dilated. LEFT ATRIUM size: WNL. RIGHT ATRIUM size: severely dilated. INTER ATRIAL SEPTUM: No definite atrial septal defect noted however a small PFO could be missed. AORTIC ROOT: seems to be within normal limits. ASCENDING AORTA: is not well visualized. INFERIOR VENA CAVA: mildly dilated with reduced respiratory variation. VALVES: MITRAL VALVE: Leaflets are mildly thickened. Mobility seems to be within normal limits. Mitral Regurgitation: Trace mitral regurgitation is noted. Mitral Stenosis: No mitral stenosis noted. Mitral valve prolapse: none noted. AORTIC VALVE: all leaflets not well visualised but with mild thickening and adequate excursion. Aortic stenosis: No aortic stenosis noted. Aortic regurgitation: trace aortic incompetence noted. TRICUSPID VALVE: mobility and structures within normal limit. Tricuspid stenosis: no tricuspid stenosis noted. Tricuspid regurgitation: mild to moderate tricuspid regurgitation noted. Estimated RVS : approximately 70 to 75 mmHg, consistent with severe pulmonary hypertension. PULMONARY VALVE: was not well visualized but no significant abnormalities suspected. Pulmonary stenosis: no pulmonary stenosis noted. Pulmonary regurgitation: no significant pulmonary regurgitation noted. MASSES AND THROMBUS: No definite intracardiac thrombus or masses are noted. PERICARDIUM: No pericardial effusion was noted. IMPRESSION: 1. Normal LVEF. RV EF mildly depressed. 2. Mild LVH noted. 3. Grade II Diastolic Dysfunction noted. 4. Mild tricuspid regurgitation noted with severe pulmonary hypertension. Estimated RVSP approximately 72-75 mmHg. 5. RV severely dilated. RA severely dilated. 6. Echocardiogram was technically difficult therefore clinical correlation is requested. MMode/2D Measurements & Calculations RVDd: 3.6 cm LVIDd: 4.5 cm FS: 26.0 % Ao root diam: 2.5 cm IVSd: 1.1 cm LVIDs: 3.4 cm EDV(Teich): Ao root area: 94.7 ml LVPWd: 1.4 cm 5.1 cm2 ESV(Teich): LA dimension: 3.2 cm 46.2 ml EF(Teich): 51.2 % LVLd ap4: 6.0 cm SV(MOD-sp4): EDV(MOD-sp4): 22.0 ml 40.0 ml LVLs ap4: 5.2 cm ESV(MOD-sp4): 18.0 ml EF(MOD-sp4): 55.0 % Doppler Measurements & Calculations MV E max caio: MV P1/2t max caio: Ao V2 max: LV V1 max P.9 cm/sec 40.4 cm/sec 79.5 cm/sec 1.3 mmHg MV A max caio: MV P1/2t: 59.3 msec Ao max PG: LV V1 max: 45.1 cm/sec 2.5 mmHg 57.5 cm/sec MVA(P1/2t): 3.7 cm2 MV E/A: 0.79 MV dec slope: 199.4 cm/sec2 MV dec time: 0.27 sec TR max caio: MV P1/2t-pr_phl: 387.6 cm/sec 59.3 msec TR max P.1 mmHg : UMESH SHEEHAN Shyamal
[2020-10-14] MEDS ORDERED: CEFTRIAXONE 1 GM/D5W RTU 1 GM/50 ML RTUPB IV SCH (22:00)
[2020-10-14] MEDS ORDERED: CEFTRIAXONE INJ 1000 MG VIAL ONE (22:31)
[2020-10-14] MEDS: CEFTRIAXONE SODIUM 1,000 MG in DEXTROSE 5%-WATER 50 ML IV SCH (23:19)
[2020-10-15] MEDS: LEVOTHYROXINE SODIUM 0.1 MG TABLET PO SCH (05:13)
[2020-10-15 05:36] LABS: HEMATOCRIT 48.8 % (37.9-51.0); HEMOGLOBIN 16.1 g/dL (13.5-17.0); MEAN CORPUSCULAR HEMOGLOBIN 28.9 pg (27.0-33.4); MEAN CORPUSCULAR HGB CONC 32.9 g/dL (32.0-36.0); MEAN CORPUSCULAR VOLUME 88 fl (80-97); RED BLOOD COUNT 5.55 10^6/uL (4.35-5.55); RED CELL DISTRIBUTION WIDTH 16.4 % (11.5-14.0); WHITE BLOOD COUNT 5.7 10^3/uL (4.0-10.5)
[2020-10-15 05:45] LABS: ANION GAP 5 (5-19); BLOOD UREA NITROGEN 20 mg/dL (7-20); CALCIUM 8.5 mg/dL (8.4-10.2); CARBON DIOXIDE 33 mmol/L (22-30); CHLORIDE 95 mmol/L (98-107); GLUCOSE 135 mg/dL (75-110); POTASSIUM 4.1 mmol/L (3.6-5.0)
[2020-10-15 05:58] LABS: PLATELET COUNT 97 10^3/uL (150-450)
--- NOTE | 2020-10-15 08:33 | PDOC CONSULTATION ---
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 But that also gives him some tenderness and pain. Otherwise he presented with shortness of breath and cough as well. Upon presentation he seemed to be having some symptoms of heart failure, and some symptoms of COPD exacerbation. However, patient tells me he quit smoking about 20 to 25 years ago and sounds like he only had about a 67-32-audi-year history of tobacco. He is a poor historian however. Specifically, the CT showed 2 rounded masses in the left hemithorax, one was pleural-based and more in the left upper lobe, there was imaging done several years ago, this does not indicate any evidence of disease at that time, there is also prominent left hilar node. I discussed his case with radiology feels that the left pleural-based mass is technically accessible. However the other issue is ongoing now his thrombocytopenia. He had been on Lovenox so I discontinued that. Also sent for HIT antibody hopefully should this should be negative. Past Medical History Cardiac Medical History: Reports: Congestive Heart Failure - EF of 50% on a stress test in the past Denies: Coronary Artery Disease, Myocardial Infarction, Hypertension Pulmonary Medical History: Denies: Asthma, Bronchitis, Chronic Obstructive Pulmonary Disease (COPD), Pneumonia Neurological Medical History: Denies: Seizures Endocrine Medical History: Reports: Hyperthyroidism - TREATED WITH EASTMAN YEARS AGO, HAS BEEN ON THYROID SUPPLEMENTATION. Malignancy Medical History: Reports: Other - Bladder cancer Musculoskeltal Medical History: Denies: Arthritis Psychiatric Medical History: Denies: Depression Traumatic Medical History: Reports: Traumatic Brain Injury Hematology: Denies: Anemia Past Surgical History Past Surgical History: Reports: Appendectomy, Other - Cystectomy/urostomy Social History Smoking Status: Former Smoker Electronic Cigarette use?: No Frequency of Alcohol Use: None Hx Recreational Drug Use: No Drugs: None Hx Prescription Drug Abuse: No - Advance Directive Resuscitation Status: Full Code Family History Family History: Reviewed & Not Pertinent, Other Parental Family History Reviewed: Yes Children Family History Reviewed: Yes Sibling(s) Family History Reviewed.: Yes Medication/Allergy Home Medications: Levothyroxine Sodium [Synthroid 0.1 mg Tablet] 200 mcg PO Q6AM 10/13/20 Allergies/Adverse Reactions: No Known Allergies Allergy (Verified 09/09/16 13:59) Review of Systems Constitutional: ABSENT: chills, fever(s), headache(s), weight gain, weight loss Eyes: ABSENT: visual disturbances Ears: ABSENT: hearing changes Cardiovascular: ABSENT: chest pain, dyspnea on exertion, edema, orthropnea, palpitations Respiratory: ABSENT: cough, hemoptysis Gastrointestinal: ABSENT: abdominal pain, constipation, diarrhea, hematemesis, hematochezia, nausea, vomiting Genitourinary: ABSENT: dysuria, hematuria Musculoskeletal: ABSENT: joint swelling Integumentary: ABSENT: rash, wounds Neurological: ABSENT: abnormal gait, abnormal speech, confusion, dizziness, focal weakness, syncope Psychiatric: ABSENT: anxiety, depression, homidical ideation, suicidal ideation Endocrine: ABSENT: cold intolerance, heat intolerance, polydipsia, polyuria Hematologic/Lymphatic: ABSENT: easy bleeding, easy bruising Physical Exam Vital Signs: Temp Pulse Resp BP Pulse Ox 98.0 F 71 18 101/72 90 L 10/14/20 23:33 10/15/20 07:00 10/14/20 23:33 10/14/20 23:33 10/14/20 23:33 Intake & Output 10/14/20 10/15/20 10/16/20 06:59 06:59 06:59 Intake Total 701 1317 Output Total 1011 1325 Balance -1324 -2353 Weight 112 kg 106.9 kg General appearance: PRESENT: no acute distress, well-developed, well-nourished Head exam: PRESENT: atraumatic, normocephalic Eye exam: PRESENT: conjunctiva pink, EOMI, PERRLA. ABSENT: scleral icterus Ear exam: PRESENT: normal external ear exam Mouth exam: PRESENT: moist, tongue midline Neck exam: ABSENT: carotid bruit, JVD, lymphadenopathy, thyromegaly Respiratory exam: PRESENT: clear to auscultation mariah. ABSENT: rales, rhonchi, wheezes Cardiovascular exam: PRESENT: RRR. ABSENT: diastolic murmur, rubs, systolic murmur Pulses: PRESENT: normal dorsalis pedis pul Vascular exam: PRESENT: normal capillary refill GI/Abdominal exam: PRESENT: normal bowel sounds, soft. ABSENT: distended, guarding, mass, organolmegaly, rebound, tenderness Rectal exam: PRESENT: deferred Extremities exam: PRESENT: full ROM. ABSENT: calf tenderness, clubbing, pedal edema Neurological exam: PRESENT: alert, awake, oriented to person, oriented to place, oriented to time, oriented to situation, CN II-XII grossly intact. ABSENT: motor sensory deficit Psychiatric exam: PRESENT: appropriate affect, normal mood. ABSENT: homicidal ideation, suicidal ideation Skin exam: PRESENT: dry, intact, warm. ABSENT: cyanosis, rash Results Laboratory Results: 10/15/20 04:38 10/15/20 04:38 10/15/20 10/15/20 04:38 04:38 WBC 5.7 RBC 5.55 Hgb 16.1 Hct 48.8 MCV 88 MCH 28.9 MCHC 32.9 RDW 16.4 H Plt Count 97 L Sodium 132.5 L Potassium 4.1 Chloride 95 L Carbon Dioxide 33 H Anion Gap 5 BUN 20 Creatinine 0.90 Est GFR ( Amer) > 60 Glucose 135 H Calcium 8.5 10/12/20 20:45 Clean Catch Midstream Urine Culture - Final Escherichia Coli Proteus Mirabilis 10/12/20 10/12/20 10/13/20 18:10 18:10 02:06 Troponin I < 0.012 < 0.012 NT-Pro-B Natriuret Pep 2220 H 10/13/20 10/13/20 10/15/20 10:33 12:35 04:38 Troponin I Cancelled < 0.012 NT-Pro-B Natriuret Pep 1590 H Impressions: Chest/Abdomen CTA 10/12/20 00:00 IMPRESSION: No evidence of pulmonary embolus. Chronic fibrotic changes bilaterally.. There are 2 rounded mass lesions identified left hemithorax, suspicious for neoplasm. Left pleural reaction or perhaps loculated effusion. Prominent left hilar lymph node, suspicious for regional spread of disease. Left adrenal mass, viewed with suspicion for remote metastatic disease given the pulmonary lesions . Addendum: Prior CT September 15, 2016 has been retrieved. The fibrotic changes were present on that examination. The pleural-based mass lesions and pleural reaction left hemithorax are adverse change from prior. The prominent left hilar lymph node is adverse change from prior.. Chest X-Ray 10/12/20 18:28 IMPRESSION: Asymmetric left lung opacities move concerning for acute infection. This may be superimposed on some mild chronic fibrotic change. Status: Image reviewed by me Assessment & Plan - Diagnosis (1) Lung mass Is this a current diagnosis for this admission?: Yes Plan: Concerning with smoking history for primary lung cancer. Could not get any other type of history from the patient in terms of pneumoconiosis but he was a very poor historian. He did have service, but do not know if there were any exposure to things like burn pits. Biopsy is needed. But platelet count has dropped and will await results tomorrow before ordering. (2) Thrombocytopenia Is this a current diagnosis for this admission?: Yes Plan: Thrombocytopenia, discontinue Lovenox, do not see other medications are causing this. May be DIC as well. Follow closely. - Time Time Spent: Greater than 70 Minutes Disposition: Spent greater than 100 minutes in coordination, documentation of care - Inpatient Certification Based on my medical assessment, after consideration of the patient's comorbidities, presenting symptoms, or acuity I expect that the services needed warrant INPATIENT care.: Yes I certify that my determination is in accordance with my understanding of Medicare's requirements for reasonable and necessary INPATIENT services [42 CFR 412.3e].: Yes Medical Necessity: Need for Surgery, Risk of Complication if Not Cared For in Hospital
[2020-10-15] MEDS: FUROSEMIDE INJ/PF 40 MG/4 ML SDV IV SCH ×2 (09:16→22:28)
[2020-10-15] MEDS: FAMOTIDINE 20 MG TABLET PO SCH ×2 (09:16→22:29)
--- NOTE | 2020-10-15 16:25 | PDOC PROGRESS REPORT ---
Subjective Date:: 10/15/20 Subjective:: WINNIE JOEDA is a 65 year old male with a history of pulmonary fibrosis who was previously on home oxygen and hypothyroidism who was admitted 10/12/2020 with acute on chronic respiratory failure secondary to acute CHF exacerbation in the setting of pulmonary fibrosis. Day 3: patient see on morning rounds. Resting upright in chair comfortably. O2 sat 94% on 2L NC. BP low 100/70s, consistent with baseline BP per pt. Otherwise VSS. States he is comfortable and doing well. Reports overall improvement in breathing and bilateral LE edema. Provides me with no acute complaints. Is interested in Indigen (hilton-puff) discussed with dc planning, appears this is handled outpatient setting. Seen by oncology, discussed treatment plan. He us understanding. Provides me with no other acute complaints or concerns at this time. No concerns per nursing. Reason For Visit: ACUTE CHRONIC HYPOXIC RESPIRATORY FAILURE,NEW Physical Exam Vital Signs: Temp Pulse Resp BP Pulse Ox 98.5 F 84 19 102/70 91 L 10/15/20 11:29 10/15/20 11:29 10/15/20 11:29 10/15/20 11:29 10/15/20 11:29 Intake & Output 10/14/20 10/15/20 10/16/20 06:59 06:59 06:59 Intake Total 701 1317 475 Output Total 2024 2267 1999 Balance -3043 -8010 -1724 Weight 112 kg 106.9 kg 105 kg Additional comments: General appearance: PRESENT: no acute distress, cooperative, well-developed, well-nourished Head exam: PRESENT: atraumatic, normocephalic Eye exam: PRESENT: conjunctiva pink, EOMI, PERRLA. ABSENT: scleral icterus Mouth exam: PRESENT: moist, tongue midline Teeth exam: PRESENT: poor dentation Respiratory exam: PRESENT: clear to auscultation mariah, symmetrical, unlabored, other - Supplemental oxygen by nasal cannula. ABSENT: rales, rhonchi, wheezes Cardiovascular exam: PRESENT: RRR. ABSENT: diastolic murmur, rubs, systolic murmur Pulses: PRESENT: normal dorsalis pedis pul Vascular exam: PRESENT: normal capillary refill GI/Abdominal exam: PRESENT: other - Urostomy Rectal exam: PRESENT: deferred Extremities exam: PRESENT: full ROM, +2 edema - BLE. Without TTP. ABSENT: calf tenderness, clubbing, pedal edema Musculoskeletal exam: PRESENT: ambulatory Neurological exam: PRESENT: alert, awake, oriented to person, oriented to place, oriented to time, oriented to situation, CN II-XII grossly intact. ABSENT: motor sensory deficit Skin exam: PRESENT: dry, intact, warm, other - Chronic venous stasis changes bilateral lower extremities. ABSENT: cyanosis, rash Results Laboratory Results: 10/15/20 04:38 10/15/20 04:38 10/15/20 10/15/20 04:38 04:38 WBC 5.7 RBC 5.55 Hgb 16.1 Hct 48.8 MCV 88 MCH 28.9 MCHC 32.9 RDW 16.4 H Plt Count 97 L Sodium 132.5 L Potassium 4.1 Chloride 95 L Carbon Dioxide 33 H Anion Gap 5 BUN 20 Creatinine 0.90 Est GFR ( Amer) > 60 Glucose 135 H Calcium 8.5 10/12/20 10/12/20 10/13/20 18:10 18:10 02:06 Troponin I < 0.012 < 0.012 NT-Pro-B Natriuret Pep 2220 H 10/13/20 10/13/20 10/15/20 10:33 12:35 04:38 Troponin I Cancelled < 0.012 NT-Pro-B Natriuret Pep 1590 H Impressions: Chest/Abdomen CTA 10/12/20 00:00 IMPRESSION: No evidence of pulmonary embolus. Chronic fibrotic changes bilaterally.. There are 2 rounded mass lesions identified left hemithorax, suspicious for neoplasm. Left pleural reaction or perhaps loculated effusion. Prominent left hilar lymph node, suspicious for regional spread of disease. Left adrenal mass, viewed with suspicion for remote metastatic disease given the pulmonary lesions . Addendum: Prior CT September 15, 2016 has been retrieved. The fibrotic changes were present on that examination. The pleural-based mass lesions and pleural reaction left hemithorax are adverse change from prior. The prominent left hilar lymph node is adverse change from prior.. Chest X-Ray 10/12/20 18:28 IMPRESSION: Asymmetric left lung opacities move concerning for acute infection. This may be superimposed on some mild chronic fibrotic change. Assessment and Plan - Diagnosis (1) Acute and chronic respiratory failure with hypoxia Is this a current diagnosis for this admission?: Yes (2) Grade II diastolic dysfunction Is this a current diagnosis for this admission?: Yes (3) Pulmonary hypertension Is this a current diagnosis for this admission?: Yes (4) Lung mass Is this a current diagnosis for this admission?: Yes (5) Pulmonary fibrosis Is this a current diagnosis for this admission?: Yes (6) Secondary polycythemia Is this a current diagnosis for this admission?: Yes (7) Urinary tract infection Is this a current diagnosis for this admission?: Yes (8) Hypothyroidism Is this a current diagnosis for this admission?: Yes (9) Obesity (BMI 30-39.9) Is this a current diagnosis for this admission?: Yes (10) Thrombocytopenia Is this a current diagnosis for this admission?: Yes - Plan Summary Summary: Acute and chronic respiratory failure with hypoxia: 94% on 2L NC. SOB gradually improving. - Multifactorial 2/2 diastolic heart failure, emphysema and pulmonary fibrosis. - Hx pulmonary fibrosis and previously on home oxygen - CT of the chest consistent with chronic fibrotic changes with new masses on the left lower lung concerning for malignancy Grade II Diastolic Dysfunction: Improvement in SOB and LE edema. Cnt lasix IV. Echo: Normal LVEF, RV EF midly depressed. Grade II diastolic dysfunction. Severe pulmonary HTN RVSP 72-75 mmHg. - I&O with negative 2L fluid balance - Elevated JVD, bilateral pitting edema on initial exam, improving - proBNP of 2220 -> 1590 with tx thus far - Chest imaging both x-ray and CT showed extensive fibrosis with no significant signs of volume overload - Cnt telemetry - Cnt low dose Toprol XL - Cnt Lasix 40mg IV BID, plan to dc home on lasix p.o. - Strict I&O's, daily weights - Cardiac diet and fluid restriction Pulmonary HTN: Echo: Severe pulmonary HTN RVSP 72-75 mmHg. - Likely 2/2 hx pulmonary fibrosis - Likely the cause of Secondary polycythemia monitor on H&H. - Consider pulmonary consult vs out pt pulm f/u. Lung mass: CT chest showed 2 lung masses near left diaphragm, concerning for primary lung cancer. - Dr. Rueda on board recommend CT biopsy. Thrombocytopenia: Plt 97 today. - Per oncology: Hold lovenox, HIT Ab pending - Monitor, if improved will get CT biopsy. Pulmonary fibrosis: known history of fibrosis, previously on home O2. Likely cause Pulm HTN. - CXR/CT advanced pulmonary fibrosis - Dc with home O2 - Consider pulmonary consult vs out pt pulm f/u. Urinary Tract infection: Cnt Ceftriaxone - UA: UTI - UC: E. coli and Proteus mirabilis - BC NGTD. Hypothyroidism: Cnt levothyroxine, close PCP f/u Obesity (BMI 30-39.9): Cosulted on diet management. Diastolic dysfunction plays part. Cnt Tx as above. Cnt cardiac diet. - Time Time Spent with patient: 25-34 minutes Medications reviewed and adjusted accordingly: Yes Anticipated Discharge Disposition: Home with Home Health - O2 Anticipated Discharge Timeframe: tbd
[2020-10-15] MEDS: CEFTRIAXONE SODIUM 1,000 MG in DEXTROSE 5%-WATER 50 ML IV SCH (22:29)
[2020-10-16] MEDS: LEVOTHYROXINE SODIUM 0.1 MG TABLET PO SCH (05:20)
[2020-10-16 06:05] LABS: HEMATOCRIT 53.2 % (37.9-51.0); HEMOGLOBIN 17.5 g/dL (13.5-17.0); MEAN CORPUSCULAR HEMOGLOBIN 28.9 pg (27.0-33.4); MEAN CORPUSCULAR HGB CONC 32.9 g/dL (32.0-36.0); MEAN CORPUSCULAR VOLUME 88 fl (80-97); PLATELET COUNT 110 10^3/uL (150-450); RED BLOOD COUNT 6.04 10^6/uL (4.35-5.55); RED CELL DISTRIBUTION WIDTH 16.5 % (11.5-14.0); WHITE BLOOD COUNT 6.3 10^3/uL (4.0-10.5)
--- NOTE | 2020-10-16 08:35 | PDOC PROGRESS REPORT ---
Subjective Date:: 10/16/20 Subjective:: Platelet count is improved today. Discussed CT-guided biopsy with patient. Plan for this to be done on Wednesday. Further discussion with the patient, we got history of bladder cancer status post cystectomy with creation of urostomy, he tells me all of this happened at [facility], and patient had what sounds like a neoadjuvant chemotherapy approach. We will get these records. Reason For Visit: ACUTE CHRONIC HYPOXIC RESPIRATORY FAILURE,NEW Physical Exam Vital Signs: Temp Pulse Resp BP Pulse Ox 97.9 F 74 18 112/72 92 10/15/20 23:10 10/15/20 23:10 10/15/20 23:10 10/15/20 23:10 10/15/20 23:10 Intake & Output 10/15/20 10/16/20 10/17/20 06:59 06:59 06:59 Intake Total 1317 1235 Output Total 3675 4300 Balance -2358 -3065 Weight 106.9 kg 103.328 kg General appearance: PRESENT: no acute distress, well-developed, well-nourished Head exam: PRESENT: atraumatic, normocephalic Eye exam: PRESENT: conjunctiva pink, EOMI, PERRLA. ABSENT: scleral icterus Ear exam: PRESENT: normal external ear exam Mouth exam: PRESENT: moist, tongue midline Neck exam: ABSENT: carotid bruit, JVD, lymphadenopathy, thyromegaly Respiratory exam: PRESENT: clear to auscultation mariah. ABSENT: rales, rhonchi, wheezes Cardiovascular exam: PRESENT: RRR. ABSENT: diastolic murmur, rubs, systolic murmur Pulses: PRESENT: normal dorsalis pedis pul Vascular exam: PRESENT: normal capillary refill GI/Abdominal exam: PRESENT: normal bowel sounds, soft. ABSENT: distended, guarding, mass, organolmegaly, rebound, tenderness Rectal exam: PRESENT: deferred Extremities exam: PRESENT: full ROM. ABSENT: calf tenderness, clubbing, pedal edema Neurological exam: PRESENT: alert, awake, oriented to person, oriented to place, oriented to time, oriented to situation, CN II-XII grossly intact. ABSENT: motor sensory deficit Psychiatric exam: PRESENT: appropriate affect, normal mood. ABSENT: homicidal ideation, suicidal ideation Skin exam: PRESENT: dry, intact, warm. ABSENT: cyanosis, rash Results Laboratory Results: 10/16/20 05:32 10/15/20 04:38 10/16/20 05:32 WBC 6.3 RBC 6.04 H Hgb 17.5 H Hct 53.2 H MCV 88 MCH 28.9 MCHC 32.9 RDW 16.5 H Plt Count 110 L 10/12/20 10/12/20 10/13/20 18:10 18:10 02:06 Troponin I < 0.012 < 0.012 NT-Pro-B Natriuret Pep 2220 H 10/13/20 10/13/20 10/15/20 10:33 12:35 04:38 Troponin I Cancelled < 0.012 NT-Pro-B Natriuret Pep 1590 H Impressions: Chest/Abdomen CTA 10/12/20 00:00 IMPRESSION: No evidence of pulmonary embolus. Chronic fibrotic changes bilaterally.. There are 2 rounded mass lesions identified left hemithorax, suspicious for neoplasm. Left pleural reaction or perhaps loculated effusion. Prominent left hilar lymph node, suspicious for regional spread of disease. Left adrenal mass, viewed with suspicion for remote metastatic disease given the pulmonary lesions . Addendum: Prior CT September 15, 2016 has been retrieved. The fibrotic changes were present on that examination. The pleural-based mass lesions and pleural reaction left hemithorax are adverse change from prior. The prominent left hilar lymph node is adverse change from prior.. Chest X-Ray 10/12/20 18:28 IMPRESSION: Asymmetric left lung opacities move concerning for acute infection. This may be superimposed on some mild chronic fibrotic change. Assessment & Plan - Diagnosis (1) Lung mass Is this a current diagnosis for this admission?: Yes Plan: Biopsy planned on Wednesday. Patient had previous urothelial carcinoma, we will tr y and get records. (2) Thrombocytopenia Is this a current diagnosis for this admission?: Yes Plan: Platelet count is improved. - Time Time Spent with patient: 35 or more minutes Disposition: Today spent 60 minutes in discussion and coordination of care - Inpatient Certification Based on my medical assessment, after consideration of the patient's comorbidities, presenting symptoms, or acuity I expect that the services needed warrant INPATIENT care.: Yes I certify that my determination is in accordance with my understanding of Medicare's requirements for reasonable and necessary INPATIENT services [42 CFR 412.3e].: Yes Medical Necessity: Risk of Complication if Not Cared For in Hospital
[2020-10-16] MEDS: FAMOTIDINE 20 MG TABLET PO SCH ×2 (13:29→22:07)
[2020-10-16] MEDS: FUROSEMIDE INJ/PF 40 MG/4 ML SDV IV SCH ×2 (13:30→22:07)
--- NOTE | 2020-10-16 16:03 | PDOC PROGRESS REPORT ---
Subjective Date:: 10/16/20 Subjective:: WINNIE OJEDA is a 65 year old male with a history of pulmonary fibrosis who was previously on home oxygen and hypothyroidism who was admitted 10/12/2020 with acute on chronic respiratory failure secondary to acute CHF exacerbation in the setting of pulmonary fibrosis. Day 4: patient see on morning rounds. Resting in bed comfortably. O2 sat WNL on 2L NC. Continued improvement in SOB and bilateral LE edema. Provides me with no acute complaints. Noted that a piece of the urostomy has broken. He plans to contact DME provider for replacement. -3L urine output noted today. Seen by oncology, discussed treatment plan. Guided CT biopsy tomorrow, plt count improved, cnt hold anticoagulation. No concerns per nursing outside of urostomy malfunction. Reason For Visit: ACUTE CHRONIC HYPOXIC RESPIRATORY FAILURE,NEW Physical Exam Vital Signs: Temp Pulse Resp BP Pulse Ox 98.7 F 77 18 103/61 91 L 10/16/20 12:32 10/16/20 12:32 10/16/20 12:32 10/16/20 12:32 10/16/20 12:32 Intake & Output 10/15/20 10/16/20 10/17/20 06:59 06:59 06:59 Intake Total 1317 1235 594 Output Total 3675 4300 395 Balance -2358 -3065 199 Weight 106.9 kg 103.328 kg Additional comments: General appearance: PRESENT: no acute distress, cooperative, well-developed, well-nourished Eye exam: EOMI. Mouth exam: PRESENT: moist, tongue midline Respiratory exam: PRESENT: clear to auscultation mariah, symmetrical, unlabored, other - Supplemental oxygen by nasal cannula. ABSENT: rales, rhonchi, wheezes Cardiovascular exam: PRESENT: RRR. ABSENT: diastolic murmur, rubs, systolic murmur GI/Abdominal exam: PRESENT: other - Urostomy Extremities exam: PRESENT: full ROM, +2 edema - BLE improved from yesterday. Without TTP. ABSENT: calf tenderness, clubbing, pedal edema Musculoskeletal exam: PRESENT: ambulatory Neurological exam: PRESENT: alert, awake, oriented to person, oriented to place, oriented to time, oriented to situation, CN II-XII grossly intact. ABSENT: motor sensory deficit Skin exam: PRESENT: dry, intact, warm, other - Chronic venous stasis changes bilateral lower extremities. ABSENT: cyanosis, rash Results Laboratory Results: 10/16/20 05:32 10/15/20 04:38 10/16/20 05:32 WBC 6.3 RBC 6.04 H Hgb 17.5 H Hct 53.2 H MCV 88 MCH 28.9 MCHC 32.9 RDW 16.5 H Plt Count 110 L 10/12/20 10/12/20 10/13/20 18:10 18:10 02:06 Troponin I < 0.012 < 0.012 NT-Pro-B Natriuret Pep 2220 H 10/13/20 10/13/20 10/15/20 10:33 12:35 04:38 Troponin I Cancelled < 0.012 NT-Pro-B Natriuret Pep 1590 H Impressions: Chest/Abdomen CTA 10/12/20 00:00 IMPRESSION: No evidence of pulmonary embolus. Chronic fibrotic changes bilaterally.. There are 2 rounded mass lesions identified left hemithorax, suspicious for neoplasm. Left pleural reaction or perhaps loculated effusion. Prominent left hilar lymph node, suspicious for regional spread of disease. Left adrenal mass, viewed with suspicion for remote metastatic disease given the pulmonary lesions . Addendum: Prior CT September 15, 2016 has been retrieved. The fibrotic changes were present on that examination. The pleural-based mass lesions and pleural reaction left hemithorax are adverse change from prior. The prominent left hilar lymph node is adverse change from prior.. Chest X-Ray 10/12/20 18:28 IMPRESSION: Asymmetric left lung opacities move concerning for acute infection. This may be superimposed on some mild chronic fibrotic change. Assessment and Plan - Diagnosis (1) Acute and chronic respiratory failure with hypoxia Is this a current diagnosis for this admission?: Yes (2) Grade II diastolic dysfunction Is this a current diagnosis for this admission?: Yes (3) Pulmonary hypertension Is this a current diagnosis for this admission?: Yes (4) Lung mass Is this a current diagnosis for this admission?: Yes (5) Pulmonary fibrosis Is this a current diagnosis for this admission?: Yes (6) Secondary polycythemia Is this a current diagnosis for this admission?: Yes (7) Urinary tract infection Is this a current diagnosis for this admission?: Yes (8) Hypothyroidism Is this a current diagnosis for this admission?: Yes (9) Obesity (BMI 30-39.9) Is this a current diagnosis for this admission?: Yes (10) Thrombocytopenia Is this a current diagnosis for this admission?: Yes - Plan Summary Summary: Acute and chronic respiratory failure with hypoxia: >92% O2 sat on 2L NC. SOB gradually improving. - Multifactorial 2/2 diastolic heart failure, emphysema and pulmonary fibrosis. - Hx pulmonary fibrosis and previously on home oxygen - CT of the chest consistent with chronic fibrotic changes with new masses on the left lower lung concerning for malignancy Grade II Diastolic Dysfunction: Improvement in SOB and LE edema. Cnt lasix IV. - Echo: Normal LVEF, RV EF midly depressed. Grade II diastolic dysfunction. Severe pulmonary HTN RVSP 72-75 mmHg. - I&O with negative 3L fluid balance - Elevated JVD, bilateral pitting edema on initial exam, improving - proBNP of 2220 -> 1590 with tx thus far - Chest imaging both x-ray and CT showed extensive fibrosis with no significant signs of volume overload - Cnt telemetry - Cnt low dose Toprol XL - Cnt Lasix 40mg IV BID, plan to dc home on lasix p.o. - Strict I&O's, daily weights - Cardiac diet and fluid restriction Pulmonary HTN: Echo: Severe pulmonary HTN RVSP 72-75 mmHg. - Likely 2/2 hx pulmonary fibrosis - Likely the cause of Secondary polycythemia monitor on H&H. - Consider pulmonary consult vs out pt pulm f/u. Lung mass: CT chest showed 2 lung masses near left diaphragm, concerning for pr imary lung cancer. - Dr. Rueda, CT biopsy scheduled for 10/18/2020. - Cnt hold anticoagulation Thrombocytopenia: Plt 110 today, after holding anticoagulation. - Per oncology: Cnt hold lovenox. HIT Ab pending Pulmonary fibrosis: known history of fibrosis, previously on home O2. Likely cause Pulm HTN. - CXR/CT advanced pulmonary fibrosis - Dc with home O2 - Consider pulmonary consult vs out pt pulm f/u. Urinary Tract infection: Cnt Ceftriaxone day 12/01. - UA: UTI - UC: E. coli and Proteus mirabilis - BC NGTD. Hypothyroidism: Cnt levothyroxine, close PCP f/u Obesity (BMI 30-39.9): Cosulted on diet management. Diastolic dysfunction plays part. Cnt Tx as above. Cnt cardiac diet. - Time Time Spent with patient: 25-34 minutes Medications reviewed and adjusted accordingly: Yes Anticipated Discharge Disposition: Home, Self Care Anticipated Discharge Timeframe: tbd
[2020-10-16] MEDS: CEFTRIAXONE SODIUM 1,000 MG in DEXTROSE 5%-WATER 50 ML IV SCH (22:07)
[2020-10-17] MEDS: LEVOTHYROXINE SODIUM 0.1 MG TABLET PO SCH (06:02)
[2020-10-17 06:12] LABS: HEMATOCRIT 54.5 % (37.9-51.0); HEMOGLOBIN 17.8 g/dL (13.5-17.0); MEAN CORPUSCULAR HEMOGLOBIN 28.7 pg (27.0-33.4); MEAN CORPUSCULAR HGB CONC 32.7 g/dL (32.0-36.0); MEAN CORPUSCULAR VOLUME 88 fl (80-97); PLATELET COUNT 124 10^3/uL (150-450); RED CELL DISTRIBUTION WIDTH 16.6 % (11.5-14.0); WHITE BLOOD COUNT 6.8 10^3/uL (4.0-10.5)
[2020-10-17 06:39] LABS: BLOOD UREA NITROGEN 23 mg/dL (7-20); CALCIUM 9.3 mg/dL (8.4-10.2); CHLORIDE 90 mmol/L (98-107); GLUCOSE 101 mg/dL (75-110); POTASSIUM 4.4 mmol/L (3.6-5.0)
[2020-10-17 06:48] LABS: ANION GAP 6 (5-19); CARBON DIOXIDE 39 mmol/L (22-30)
--- NOTE | 2020-10-17 08:00 | PDOC PROGRESS REPORT ---
Subjective Date:: 10/17/20 Subjective:: Doing ok this am, plan for lung bx tomorrow. asked nursing to check w/ radiology on need for NPO after midnight. Reason For Visit: ACUTE CHRONIC HYPOXIC RESPIRATORY FAILURE,NEW Physical Exam Vital Signs: Temp Pulse Resp BP Pulse Ox 98.6 F 76 17 98/68 L 91 L 10/17/20 07:45 10/17/20 02:00 10/16/20 23:37 10/16/20 23:37 10/16/20 23:37 Intake & Output 10/16/20 10/17/20 10/18/20 06:59 06:59 06:59 Intake Total 1235 934 Output Total 4300 1994 Balance -9834 -8504 Weight 103.328 kg 103.3 kg General appearance: PRESENT: no acute distress, well-developed, well-nourished Head exam: PRESENT: atraumatic, normocephalic Eye exam: PRESENT: conjunctiva pink, EOMI, PERRLA. ABSENT: scleral icterus Ear exam: PRESENT: normal external ear exam Mouth exam: PRESENT: moist, tongue midline Neck exam: ABSENT: carotid bruit, JVD, lymphadenopathy, thyromegaly Respiratory exam: PRESENT: clear to auscultation mariah. ABSENT: rales, rhonchi, wheezes Cardiovascular exam: PRESENT: RRR. ABSENT: diastolic murmur, rubs, systolic murmur Pulses: PRESENT: normal dorsalis pedis pul Vascular exam: PRESENT: normal capillary refill GI/Abdominal exam: PRESENT: normal bowel sounds, soft. ABSENT: distended, guarding, mass, organolmegaly, rebound, tenderness Rectal exam: PRESENT: deferred Extremities exam: PRESENT: full ROM. ABSENT: calf tenderness, clubbing, pedal edema Neurological exam: PRESENT: alert, awake, oriented to person, oriented to place, oriented to time, oriented to situation, CN II-XII grossly intact. ABSENT: motor sensory deficit Psychiatric exam: PRESENT: appropriate affect, normal mood. ABSENT: homicidal ideation, suicidal ideation Skin exam: PRESENT: dry, intact, warm. ABSENT: cyanosis, rash Results Laboratory Results: 10/17/20 05:29 10/17/20 05:29 10/17/20 10/17/20 05:29 05:29 WBC 6.8 RBC 6.20 H Hgb 17.8 H Hct 54.5 H MCV 88 MCH 28.7 MCHC 32.7 RDW 16.6 H Plt Count 124 L Sodium 135.0 L Potassium 4.4 Chloride 90 L Carbon Dioxide 39 H Anion Gap 6 BUN 23 H Creatinine 1.02 Est GFR ( Amer) > 60 Glucose 101 Calcium 9.3 10/12/20 10/12/20 10/13/20 18:10 18:10 02:06 Troponin I < 0.012 < 0.012 NT-Pro-B Natriuret Pep 2220 H 10/13/20 10/13/20 10/15/20 10:33 12:35 04:38 Troponin I Cancelled < 0.012 NT-Pro-B Natriuret Pep 1590 H Impressions: Chest/Abdomen CTA 10/12/20 00:00 IMPRESSION: No evidence of pulmonary embolus. Chronic fibrotic changes bilaterally.. There are 2 rounded mass lesions identified left hemithorax, suspicious for neoplasm. Left pleural reaction or perhaps loculated effusion. Prominent left hilar lymph node, suspicious for regional spread of disease. Left adrenal mass, viewed with suspicion for remote metastatic disease given the pulmonary lesions . Addendum: Prior CT September 15, 2016 has been retrieved. The fibrotic changes were present on that examination. The pleural-based mass lesions and pleural reaction left hemithorax are adverse change from prior. The prominent left hilar lymph node is adverse change from prior.. Chest X-Ray 10/12/20 18:28 IMPRESSION: Asymmetric left lung opacities move concerning for acute infection. This may be superimposed on some mild chronic fibrotic change. Assessment & Plan - Diagnosis (1) Lung mass Is this a current diagnosis for this admission?: Yes Plan: concerning for primary cancer. He had stage 2 bladder ca s/p surgery, was on neoadjuvant trial with nivolumab, we got [facility] records, may be recurrence. (2) Thrombocytopenia Is this a current diagnosis for this admission?: Yes Plan: Plt ct improving, hit ab neg - Time Time Spent with patient: 35 or more minutes
[2020-10-17] MEDS: FAMOTIDINE 20 MG TABLET PO SCH ×2 (10:09→22:54)
[2020-10-17] MEDS: FUROSEMIDE INJ/PF 40 MG/4 ML SDV IV SCH ×2 (10:09→22:54)
--- NOTE | 2020-10-17 11:40 | PDOC PROGRESS REPORT ---
Subjective Date:: 10/17/20 Subjective:: WINNIE OJEDA is a 65 year old male with a history of pulmonary fibrosis who was previously on home oxygen and hypothyroidism who was admitted 10/12/2020 with acute on chronic respiratory failure secondary to acute CHF exacerbation in the setting of pulmonary fibrosis. Day 5: patient see on morning rounds. Resting in bed comfortably. O2 sat WNL on room air. Continued improvement in SOB and bilateral LE edema. Provides me with no acute complaints. Overall net negative fluids balance. Seen by oncology, plan for CT-guided biopsy tomorrow. Cannot have breakfast prior. Understanding of this. Plt cnt to increase. Current IV has blown, will have nursing place a second. No other concerns per nursing. Reason For Visit: ACUTE CHRONIC HYPOXIC RESPIRATORY FAILURE,NEW Physical Exam Vital Signs: Temp Pulse Resp BP Pulse Ox 98.6 F 76 17 98/68 L 91 L 10/17/20 07:45 10/17/20 02:00 10/16/20 23:37 10/16/20 23:37 10/16/20 23:37 Intake & Output 10/16/20 10/17/20 10/18/20 06:59 06:59 06:59 Intake Total 1235 934 Output Total 4300 1994 Balance -3065 -1061 Weight 103.328 kg 103.3 kg Additional comments: General appearance: PRESENT: no acute distress, cooperative, well-developed, well-nourished Eye exam: EOMI. Mouth exam: PRESENT: moist, tongue midline Respiratory exam: PRESENT: clear to auscultation mariah, symmetrical, unlabored, other - Supplemental oxygen by nasal cannula. ABSENT: rales, rhonchi, wheezes Cardiovascular exam: PRESENT: RRR. ABSENT: diastolic murmur, rubs, systolic murmur GI/Abdominal exam: PRESENT: other - Urostomy Extremities exam: PRESENT: full ROM, +1 edema Left > right, overall improved. Without TTP. ABSENT: calf tenderness, clubbing, pedal edema Musculoskeletal exam: PRESENT: ambulatory Neurological exam: PRESENT: alert, awake, oriented to person, oriented to place, oriented to time, oriented to situation, CN II-XII grossly intact. ABSENT: motor sensory deficit Skin exam: PRESENT: dry, intact, warm, other - Chronic venous stasis changes bilateral lower extremities. ABSENT: cyanosis, rash Results Laboratory Results: 10/17/20 05:29 10/17/20 05:29 10/17/20 10/17/20 05:29 05:29 WBC 6.8 RBC 6.20 H Hgb 17.8 H Hct 54.5 H MCV 88 MCH 28.7 MCHC 32.7 RDW 16.6 H Plt Count 124 L Sodium 135.0 L Potassium 4.4 Chloride 90 L Carbon Dioxide 39 H Anion Gap 6 BUN 23 H Creatinine 1.02 Est GFR ( Amer) > 60 Glucose 101 Calcium 9.3 10/12/20 10/12/20 10/13/20 18:10 18:10 02:06 Troponin I < 0.012 < 0.012 NT-Pro-B Natriuret Pep 2220 H 10/13/20 10/13/20 10/15/20 10:33 12:35 04:38 Troponin I Cancelled < 0.012 NT-Pro-B Natriuret Pep 1590 H Impressions: Chest/Abdomen CTA 10/12/20 00:00 IMPRESSION: No evidence of pulmonary embolus. Chronic fibrotic changes bilaterally.. There are 2 rounded mass lesions identified left hemithorax, suspicious for neoplasm. Left pleural reaction or perhaps loculated effusion. Prominent left hilar lymph node, suspicious for regional spread of disease. Left adrenal mass, viewed with suspicion for remote metastatic disease given the pulmonary lesions . Addendum: Prior CT September 15, 2016 has been retrieved. The fibrotic changes were present on that examination. The pleural-based mass lesions and pleural reaction left hemithorax are adverse change from prior. The prominent left hilar lymph node is adverse change from prior.. Chest X-Ray 10/12/20 18:28 IMPRESSION: Asymmetric left lung opacities move concerning for acute infection. This may be superimposed on some mild chronic fibrotic change. Assessment and Plan - Diagnosis (1) Acute and chronic respiratory failure with hypoxia Is this a current diagnosis for this admission?: Yes (2) Grade II diastolic dysfunction Is this a current diagnosis for this admission?: Yes (3) Pulmonary hypertension Is this a current diagnosis for this admission?: Yes (4) Lung mass Is this a current diagnosis for this admission?: Yes (5) Pulmonary fibrosis Is this a current diagnosis for this admission?: Yes (6) Secondary polycythemia Is this a current diagnosis for this admission?: Yes (7) Urinary tract infection Is this a current diagnosis for this admission?: Yes (8) Hypothyroidism Is this a current diagnosis for this admission?: Yes (9) Obesity (BMI 30-39.9) Is this a current diagnosis for this admission?: Yes (10) Thrombocytopenia Is this a current diagnosis for this admission?: Yes - Plan Summary Summary: Acute and chronic respiratory failure with hypoxia: >92% O2 sat on room air. SOB gradually improving. - Multifactorial 2/2 diastolic heart failure, emphysema and pulmonary fibrosis. - Hx pulmonary fibrosis and previously on home oxygen - CT of the chest consistent with chronic fibrotic changes with new masses on the left lower lung concerning for malignancy Grade II Diastolic Dysfunction: Improvement in SOB and LE edema. Cnt lasix IV, consider switching to p.o. tomorrow. - Echo: Normal LVEF, RV EF midly depressed. Grade II diastolic dysfunction. Severe pulmonary HTN RVSP 72-75 mmHg. - I&O with negative 3L fluid balance - Elevated JVD, bilateral pitting edema on initial exam, improving - proBNP of 2220 -> 1590 with tx thus far - Chest imaging both x-ray and CT showed extensive fibrosis with no significant signs of volume overload - Cnt telemetry - Cnt low dose Toprol XL - Cnt Lasix 40mg IV BID, plan to dc home on lasix p.o; consider switching to p.o. lasix prior to dc home. - Strict I&O's, daily weights - Cardiac diet and fluid restriction Pulmonary HTN: Echo: Severe pulmonary HTN RVSP 72-75 mmHg. - Likely 2/2 hx pulmonary fibrosis - Likely the cause of Secondary polycythemia monitor on H&H. - Consider pulmonary consult vs out pt pulm f/u. Lung mass: CT chest showed 2 lung masses near left diaphragm, concerning for primary lung cancer. - Dr. Rueda, CT biopsy scheduled for 10/18/2020. Hold breakfast prior. - Cnt hold anticoagulation Thrombocytopenia: Plt 124 today, after holding anticoagulation. - Per oncology: Cnt hold lovenox. HIT Ab WNL. Pulmonary fibrosis: known history of fibrosis, previously on home O2. Likely cause Pulm HTN. - CXR/CT advanced pulmonary fibrosis - Dc with home O2 - Consider pulmonary consult vs out pt pulm f/u. Urinary Tract infection: Cnt Ceftriaxone day 01/31. - UA: UTI - UC: E. coli and Proteus mirabilis - BC NGTD. Hypothyroidism: Cnt levothyroxine, close PCP f/u Obesity (BMI 30-39.9): Cosulted on diet management. Diastolic dysfunction plays part. Cnt Tx as above. Cnt cardiac diet. - Time Time Spent with patient: 25-34 minutes Medications reviewed and adjusted accordingly: Yes Anticipated Discharge Disposition: Home, Self Care Anticipated Discharge Timeframe: within 48 hours
[2020-10-17] MEDS: CEFTRIAXONE SODIUM 1,000 MG in DEXTROSE 5%-WATER 50 ML IV SCH (22:54)
[2020-10-18] MEDS: LEVOTHYROXINE SODIUM 0.1 MG TABLET PO SCH (05:58)
[2020-10-18 07:15] LABS: PROTHROMBIN TIME 14.4 SEC (11.4-15.4)
--- NOTE | 2020-10-18 07:54 | PDOC PROGRESS REPORT ---
Subjective Date:: 10/18/20 Subjective:: Biopsy plan today Reason For Visit: ACUTE CHRONIC HYPOXIC RESPIRATORY FAILURE,NEW Physical Exam Vital Signs: Temp Pulse Resp BP Pulse Ox 98.4 F 78 17 110/72 91 L 10/18/20 04:03 10/18/20 04:03 10/18/20 04:03 10/18/20 04:03 10/18/20 04:03 Intake & Output 10/17/20 10/18/20 10/19/20 06:59 06:59 06:59 Intake Total 934 604 Output Total 1994 2499 Balance -1061 -1893 Weight 103.3 kg 103.3 kg General appearance: PRESENT: no acute distress, well-developed, well-nourished Head exam: PRESENT: atraumatic, normocephalic Eye exam: PRESENT: conjunctiva pink, EOMI, PERRLA. ABSENT: scleral icterus Ear exam: PRESENT: normal external ear exam Mouth exam: PRESENT: moist, tongue midline Neck exam: ABSENT: carotid bruit, JVD, lymphadenopathy, thyromegaly Respiratory exam: PRESENT: clear to auscultation mariah. ABSENT: rales, rhonchi, wheezes Cardiovascular exam: PRESENT: RRR. ABSENT: diastolic murmur, rubs, systolic murmur Pulses: PRESENT: normal dorsalis pedis pul Vascular exam: PRESENT: normal capillary refill GI/Abdominal exam: PRESENT: normal bowel sounds, soft. ABSENT: distended, guarding, mass, organolmegaly, rebound, tenderness Rectal exam: PRESENT: deferred Extremities exam: PRESENT: full ROM. ABSENT: calf tenderness, clubbing, pedal edema Neurological exam: PRESENT: alert, awake, oriented to person, oriented to place, oriented to time, oriented to situation, CN II-XII grossly intact. ABSENT: motor sensory deficit Psychiatric exam: PRESENT: appropriate affect, normal mood. ABSENT: homicidal ideation, suicidal ideation Skin exam: PRESENT: dry, intact, warm. ABSENT: cyanosis, rash Results Laboratory Results: 10/17/20 05:29 10/17/20 05:29 10/12/20 19:00 Blood Blood Culture - Final NO GROWTH IN 5 DAYS 10/12/20 18:10 Blood Blood Culture - Final NO GROWTH IN 5 DAYS 10/12/20 10/12/20 10/13/20 18:10 18:10 02:06 Troponin I < 0.012 < 0.012 NT-Pro-B Natriuret Pep 2220 H 10/13/20 10/13/20 10/15/20 10:33 12:35 04:38 Troponin I Cancelled < 0.012 NT-Pro-B Natriuret Pep 1590 H Impressions: Chest/Abdomen CTA 10/12/20 00:00 IMPRESSION: No evidence of pulmonary embolus. Chronic fibrotic changes bilaterally.. There are 2 rounded mass lesions identified left hemithorax, suspicious for neoplasm. Left pleural reaction or perhaps loculated effusion. Prominent left hilar lymph node, suspicious for regional spread of disease. Left adrenal mass, viewed with suspicion for remote metastatic disease given the pulmonary lesions . Addendum: Prior CT September 15, 2016 has been retrieved. The fibrotic changes were present on that examination. The pleural-based mass lesions and pleural reaction left hemithorax are adverse change from prior. The prominent left hilar lymph node is adverse change from prior.. Chest X-Ray 10/12/20 18:28 IMPRESSION: Asymmetric left lung opacities move concerning for acute infection. This may be superimposed on some mild chronic fibrotic change. Assessment & Plan - Diagnosis (1) Lung mass Is this a current diagnosis for this admission?: Yes Plan: Biopsy plan today. (2) Thrombocytopenia Is this a current diagnosis for this admission?: Yes Plan: Resolving, monitor CBC tomorrow - Time Time Spent with patient: 35 or more minutes
[2020-10-18] MEDS: FUROSEMIDE INJ/PF 40 MG/4 ML SDV IV SCH (10:30)
[2020-10-18] MEDS ORDERED: MIDAZOLAM 2 MG/2 ML INJ ONE (10:52)
[2020-10-18] MEDS ORDERED: FENTANYL CITRATE INJ/PF 100 MCG/2 ML AMPUL ONE (10:53)
--- NOTE | 2020-10-18 12:41 | RADIOLOGY REPORT (SQ) ---
EXAM DESCRIPTION: CHEST SINGLE VIEW IMAGES COMPLETED DATE/TIME: 10/18/2020 12:30 pm REASON FOR STUDY: POST LUNG BIOPSY COMPARISON: AP view of the chest from 10/12/2020. EXAM PARAMETERS: NUMBER OF VIEWS: One view. TECHNIQUE: An AP view of the chest was obtained. RADIATION DOSE: NA LIMITATIONS: None. FINDINGS: LUNGS AND PLEURA: Status post CT-guided biopsy of a mass in the left upper lobe. There is no postprocedural pneumothorax. The appearance of the lungs and pleura is otherwise unchanged judith red to the radiograph from 10/12/2020. MEDIASTINUM AND HILAR STRUCTURES: Stable mediastinal and hilar contours. HEART AND VASCULAR STRUCTURES: Stable cardiac silhouette. BONES: No acute findings. HARDWARE: None in the chest. OTHER: No other finding. IMPRESSION: No postprocedural pneumothorax. TECHNICAL DOCUMENTATION: JOB ID: [id number] [employer]- All Rights Reserved Reading location - IP/workstation name: [email or web address]
[2020-10-18] MEDS: FAMOTIDINE 20 MG TABLET PO SCH ×2 (12:45→21:40)
--- NOTE | 2020-10-18 13:36 | RADIOLOGY REPORT (SQ) ---
EXAM DESCRIPTION: CT BIOPSY LUNG/MEDIASTINUM IMAGES COMPLETED DATE/TIME: 10/18/2020 11:43 am REASON FOR STUDY: hypoxemia COMPARISON: CT of the chest from 10/13/2020. FLUORO TIME: 4 seconds. 79 images submitted to PACS. LIMITATIONS: None. PROCEDURE: The procedure, risks, benefits, and alternatives were discussed with the patient in the p reprocedural area, and all questions were answered. Informed consent was obtained verbally and in wri ting. The patient was then brought to the CT suite, positioned supine on the CT gurney, and a time-out was performed. After that, axial images of the chest were obtained for targeting of the subpleural mass in the left upper lobe. Based on review of the axial images an appropriate access site was selected on the skin. The area around selected access site was then prepped and draped 2% chlorhexidine utilizing standard sterile technique. After that, the access site was infiltrated with 1% lidocaine and an incision was made in the skin with a #11 blade. A 19 gauge coaxial needle was then advanced through the skin inci radha and into the mass utilizing CT fluoroscopic guidance. After that, the inner stylet of the coaxia l needle was removed and 4 20 gauge core samples were obtained - the samples were collected and submi tted to cytopathology in formalin. The coaxial needle was then removed and axial images of the chest were repeated and reviewed ; the im ages demonstrated no acute biopsy-related complication. The patient tolerated the procedure well without immediate complication. At the end of the procedure the patient's condition was unchanged from the preprocedural baseline. IV conscious sedation was administered at the direction of the performing physician by a lesly escalante. 1 milligrams of Versed and 50 micrograms of fentanyl. Physiologic monitoring was provided befor e, during, and after sedation. The total sedation time was 30 minutes. Documentation of [id number] time the performing proceduralist spent monitoring the patient: 15 min utes. IMPRESSION: Successful CT-guided biopsy of the mass in the left upper lobe as detailed above. COMMENT: Patient medication list reviewed: Yes- Quality ID# 130:Eligible professional attests to doc umenting in the medical record they obtained, updated, or reviewed the patient's current medications. Quality ID #76: The patient was prepped and draped using maximum sterile barrier technique including cap, mask, sterile gown, sterile gloves, a large sterile sheet, hand hygiene, and 2% Chlorhexidine fo r cutaneous antisepsis. When ultrasound is used, sterile ultrasound techniques are followed requiring sterile gel and sterile probes. Quality ID 145: Final reports for procedures using fluoroscopy that document radiation exposure rl emelyn, or exposure time and number of fluorographic images (if radiation exposure indices are not avail able) Quality ID# 436: Final reports with documentation of one or more dose reduction techniques (e.g., Aut omated exposure control, adjustment of the mA and/or kV according to patient size, use of iterative r econstruction technique) TECHNICAL DOCUMENTATION: JOB ID: [id number] 2010 [employer]- All Rights Reserved Reading location - IP/workstation name: [email or web address]
--- NOTE | 2020-10-18 14:14 | RADIOLOGY REPORT (SQ) ---
EXAM DESCRIPTION: CHEST SINGLE VIEW IMAGES COMPLETED DATE/TIME: 10/18/2020 1:55 pm REASON FOR STUDY: 2 HR POST LUNG BIOPSY COMPARISON: AP view of the chest from 10/18/2020 at 1156 hours. NUMBER OF VIEWS: One view. TECHNIQUE: An AP view of the chest was obtained. LIMITATIONS: None. FINDINGS: LUNGS AND PLEURA: Status post CT-guided biopsy of a right upper lobe mass. There is no po stprocedural pneumothorax. The appearance of the lungs and pleura is otherwise unchanged. MEDIASTINUM AND HILAR STRUCTURES: Stable mediastinal and hilar contours. HEART AND VASCULAR STRUCTURES: Stable cardiac silhouette. BONES: No acute findings. HARDWARE: None in the chest. OTHER: No other finding. IMPRESSION: No postprocedural pneumothorax. TECHNICAL DOCUMENTATION: JOB ID: [id number] 2010 [employer]- All Rights Reserved Reading location - IP/workstation name: [email or web address]
--- NOTE | 2020-10-18 16:31 | PDOC PROGRESS REPORT ---
Subjective Date:: 10/18/20 Subjective:: WINNIE OJEDA is a 65 year old male with a history of pulmonary fibrosis who was previously on home oxygen and hypothyroidism who was admitted 10/12/2020 with acute on chronic respiratory failure secondary to acute CHF exacerbation in the setting of pulmonary fibrosis. Patient see on afternoon rounds. Resting in bed comfortably. O2 sat WNL on room air. SOB and LE cnt improve. He is s/p CT guided lung biopsy. Path results pending. Pt tolerated procedure well. Overall doing well. Breathing and LE edema cnt to improve. Does note some aching primarily in his ankles and knees, states that is usual for him. Noted plaque bilateral upper extremities, associated pruritus. Has been present for years, denies previous treatment. Current presentation persistent with his baseline. Will give emollient. (? psoriatic arthritis, denies known history). Provides me with no further complaints or concerns. Discussed with nursing, no concerns or complaints at this time. Reason For Visit: SHORTNESS OF BREATH Physical Exam Vital Signs: Temp Pulse Resp BP Pulse Ox 98.7 F 75 16 99/61 L 95 10/18/20 07:44 10/18/20 07:44 10/18/20 07:44 10/18/20 07:44 10/18/20 07:44 Intake & Output 10/17/20 10/18/20 10/19/20 06:59 06:59 06:59 Intake Total 934 604 Output Total 1994 6204 Balance -9693 -4759 Weight 103.3 kg 103.3 kg Additional comments: General appearance: PRESENT: no acute distress, cooperative, well-developed, well-nourished Eye exam: EOMI. Mouth exam: PRESENT: moist, tongue midline Respiratory exam: PRESENT: clear to auscultation mariah, symmetrical, unlabored. ABSENT: rales, rhonchi, wheezes Cardiovascular exam: PRESENT: RRR. ABSENT: diastolic murmur, rubs, systolic murmur GI/Abdominal exam: PRESENT: other - Urostomy Extremities exam: PRESENT: full ROM, +1 edema Left > right, overall improved. Without TTP. ABSENT: calf tenderness, clubbing, pedal edema Musculoskeletal exam: PRESENT: ambulatory Neurological exam: PRESENT: alert, awake, oriented to person, oriented to place, oriented to time, oriented to situation, CN II-XII grossly intact. ABSENT: motor sensory deficit Skin exam: PRESENT: dry, intact, warm, other - Chronic venous stasis changes bilateral lower extremities. Large, erythematous well-demarcated plaques bilateral upper extremities. ABSENT: cyanosis Results Laboratory Results: 10/17/20 05:29 10/17/20 05:29 10/12/20 19:00 Blood Blood Culture - Final NO GROWTH IN 5 DAYS 10/12/20 18:10 Blood Blood Culture - Final NO GROWTH IN 5 DAYS 10/12/20 10/12/20 10/13/20 18:10 18:10 02:06 Troponin I < 0.012 < 0.012 NT-Pro-B Natriuret Pep 2220 H 10/13/20 10/13/20 10/15/20 10:33 12:35 04:38 Troponin I Cancelled < 0.012 NT-Pro-B Natriuret Pep 1590 H Impressions: Chest/Abdomen CTA 10/12/20 00:00 IMPRESSION: No evidence of pulmonary embolus. Chronic fibrotic changes bilaterally.. There are 2 rounded mass lesions identified left hemithorax, suspicious for neoplasm. Left pleural reaction or perhaps loculated effusion. Prominent left hilar lymph node, suspicious for regional spread of disease. Left adrenal mass, viewed with suspicion for remote metastatic disease given the pulmonary lesions . Addendum: Prior CT September 15, 2016 has been retrieved. The fibrotic changes were present on that examination. The pleural-based mass lesions and pleural reaction left hemithorax are adverse change from prior. The prominent left hilar lymph node is adverse change from prior.. Chest X-Ray 10/12/20 18:28 IMPRESSION: Asymmetric left lung opacities move concerning for acute infection. This may be superimposed on some mild chronic fibrotic change. Assessment and Plan - Diagnosis (1) Acute and chronic respiratory failure with hypoxia Is this a current diagnosis for this admission?: Yes (2) Grade II diastolic dysfunction Is this a current diagnosis for this admission?: Yes (3) Pulmonary hypertension Is this a current diagnosis for this admission?: Yes (4) Lung mass Is this a current diagnosis for this admission?: Yes (5) Pulmonary fibrosis Is this a current diagnosis for this admission?: Yes (6) Secondary polycythemia Is this a current diagnosis for this admission?: Yes (7) Urinary tract infection Is this a current diagnosis for this admission?: Yes (8) Hypothyroidism Is this a current diagnosis for this admission?: Yes (9) Obesity (BMI 30-39.9) Is this a current diagnosis for this admission?: Yes (10) Thrombocytopenia Is this a current diagnosis for this admission?: Yes (11) Rash Is this a current diagnosis for this admission?: Yes Plan: - Plan Summary Summary: Acute and chronic respiratory failure with hypoxia: >92% O2 sat on room air. SOB cnt improve. - Multifactorial 2/2 diastolic heart failure, emphysema and pulmonary fibrosis. - Hx pulmonary fibrosis and previously on home oxygen - CT of the chest consistent with chronic fibrotic changes with new masses on the left lower lung concerning for malignancy. - Ct guided biopsy today. Grade II Diastolic Dysfunction: Improvement in SOB and LE edema. Switched to p.o. lasix today. Plan to dc home with 40mg lasix daily. - Echo: Normal LVEF, RV EF midly depressed. Grade II diastolic dysfunction. Severe pulmonary HTN RVSP 72-75 mmHg. - I&O with negative 2L fluid balance - Elevated JVD, bilateral pitting edema on initial exam, improving - proBNP of 2220 -> 1590, repeat tomorrow. - Chest imaging both x-ray and CT showed extensive fibrosis with no significant signs of volume overload - Cnt telemetry - Cnt low dose Toprol XL - Switch to 40mg p.o. BID lasix. - Strict I&O's, daily weights - Cardiac diet and fluid restriction Pulmonary HTN: Echo: Severe pulmonary HTN RVSP 72-75 mmHg. - Likely 2/2 hx pulmonary fibrosis - Likely the cause of Secondary polycythemia monitor on H&H. - Consider pulmonary consult vs out pt pulm f/u. Lung mass: CT chest showed 2 lung masses near left diaphragm, concerning for primary lung cancer. - Dr. Rueda, CT biopsy today, path results pending. - Cnt hold anticoagulation Thrombocytopenia: Plt improved, cnt monitor on morning labs. - Per oncology: Cnt hold lovenox. HIT Ab WNL. Pulmonary fibrosis: known history of fibrosis, previously on home O2. Likely cause Pulm HTN. - CXR/CT advanced pulmonary fibrosis - Dc with home O2 - Consider pulmonary consult vs out pt pulm f/u. Urinary Tract infection: Cnt Ceftriaxone day 5/7. - UA: UTI - UC: E. coli and Proteus mirabilis - BC NGTD. Rash: Large erythematous well-demarcated plaque bilateral upper extremities. - Likely psoriasis, states has been present for years. Associated pruritus. - Initiate emollients. - Given risk of malignancy consider phototherapy versus acitretin therapy in the future. - Would benefit from outpatient PCP vs dermatology f/u. Hypothyroidism: Cnt levothyroxine, close PCP f/u Obesity (BMI 30-39.9): Consulted on diet management. Diastolic dysfunction plays part. Cnt Tx as above. Cnt cardiac diet. PLAN: Pt stable. Pending path results/oncology may be able to dc 24-48hrs. - Time Time Spent with patient: 25-34 minutes Medications reviewed and adjusted accordingly: Yes Anticipated Discharge Disposition: Home, Self Care Anticipated Discharge Timeframe: within 48 hours
[2020-10-18] MEDS ORDERED: FUROSEMIDE 40 MG TABLET PO SCH (18:00)
[2020-10-18] MEDS: CEFTRIAXONE SODIUM 1,000 MG in DEXTROSE 5%-WATER 50 ML IV SCH (21:40)
[2020-10-19 05:57] LABS: HEMATOCRIT 52.1 % (37.9-51.0); HEMOGLOBIN 16.6 g/dL (13.5-17.0); MEAN CORPUSCULAR HGB CONC 31.9 g/dL (32.0-36.0); MEAN CORPUSCULAR VOLUME 88 fl (80-97); PLATELET COUNT 126 10^3/uL (150-450); RED BLOOD COUNT 5.94 10^6/uL (4.35-5.55); RED CELL DISTRIBUTION WIDTH 16.3 % (11.5-14.0); WHITE BLOOD COUNT 5.9 10^3/uL (4.0-10.5)
[2020-10-19] MEDS: LEVOTHYROXINE SODIUM 0.1 MG TABLET PO SCH (06:01)
[2020-10-19 06:24] LABS: ANION GAP 7 (5-19); BLOOD UREA NITROGEN 21 mg/dL (7-20); CALCIUM 9.1 mg/dL (8.4-10.2); CARBON DIOXIDE 32 mmol/L (22-30); CHLORIDE 95 mmol/L (98-107); GLUCOSE 98 mg/dL (75-110); POTASSIUM 4.3 mmol/L (3.6-5.0)
[2020-10-19] MEDS: FAMOTIDINE 20 MG TABLET PO SCH ×2 (09:22→21:45)
--- NOTE | 2020-10-19 09:37 | PDOC PROGRESS REPORT ---
Subjective Date:: 10/19/20 Subjective:: No acute events overnight, tolerated biopsy well. Still feels pain and swelling around the ankles, wants something more done with that. Reason For Visit: ACUTE CHRONIC HYPOXIC RESPIRATORY FAILURE,NEW Physical Exam Vital Signs: Temp Pulse Resp BP Pulse Ox 98.7 F 79 18 147/64 H 98 10/19/20 00:00 10/19/20 07:00 10/19/20 00:00 10/19/20 00:00 10/19/20 00:00 Intake & Output 10/18/20 10/19/20 10/20/20 06:59 06:59 06:59 Intake Total 604 708 Output Total 2500 1800 Balance -1896 -1092 Weight 103.3 kg 103.4 kg General appearance: PRESENT: no acute distress, well-developed, well-nourished Head exam: PRESENT: atraumatic, normocephalic Eye exam: PRESENT: conjunctiva pink, EOMI, PERRLA. ABSENT: scleral icterus Ear exam: PRESENT: normal external ear exam Mouth exam: PRESENT: moist, tongue midline Neck exam: ABSENT: carotid bruit, JVD, lymphadenopathy, thyromegaly Respiratory exam: PRESENT: clear to auscultation mariah. ABSENT: rales, rhonchi, wheezes Cardiovascular exam: PRESENT: RRR. ABSENT: diastolic murmur, rubs, systolic murmur Pulses: PRESENT: normal dorsalis pedis pul Vascular exam: PRESENT: normal capillary refill GI/Abdominal exam: PRESENT: normal bowel sounds, soft. ABSENT: distended, guarding, mass, organolmegaly, rebound, tenderness Rectal exam: PRESENT: deferred Extremities exam: PRESENT: full ROM. ABSENT: calf tenderness, clubbing, pedal edema Neurological exam: PRESENT: alert, awake, oriented to person, oriented to place, oriented to time, oriented to situation, CN II-XII grossly intact. ABSENT: motor sensory deficit Psychiatric exam: PRESENT: appropriate affect, normal mood. ABSENT: homicidal ideation, suicidal ideation Skin exam: PRESENT: dry, intact, warm. ABSENT: cyanosis, rash Results Laboratory Results: 10/19/20 05:00 10/19/20 05:00 10/19/20 10/19/20 05:00 05:00 WBC 5.9 RBC 5.94 H Hgb 16.6 Hct 52.1 H MCV 88 MCH 28.0 MCHC 31.9 L RDW 16.3 H Plt Count 126 L Sodium 133.9 L Potassium 4.3 Chloride 95 L Carbon Dioxide 32 H Anion Gap 7 BUN 21 H Creatinine 0.77 Est GFR ( Amer) > 60 Glucose 98 Calcium 9.1 10/12/20 10/12/20 10/13/20 18:10 18:10 02:06 Troponin I < 0.012 < 0.012 NT-Pro-B Natriuret Pep 2220 H 10/13/20 10/13/20 10/15/20 10:33 12:35 04:38 Troponin I Cancelled < 0.012 NT-Pro-B Natriuret Pep 1590 H 10/19/20 05:00 Troponin I NT-Pro-B Natriuret Pep 1190 H Impressions: Chest/Abdomen CTA 10/12/20 00:00 IMPRESSION: No evidence of pulmonary embolus. Chronic fibrotic changes bilaterally.. There are 2 rounded mass lesions identified left hemithorax, suspicious for neoplasm. Left pleural reaction or perhaps loculated effusion. Prominent left hilar lymph node, suspicious for regional spread of disease. Left adrenal mass, viewed with suspicion for remote metastatic disease given the pulmonary lesions . Addendum: Prior CT September 15, 2016 has been retrieved. The fibrotic changes were present on that examination. The pleural-based mass lesions and pleural reaction left hemithorax are adverse change from prior. The prominent left hilar lymph node is adverse change from prior.. Lung Biopsy CT 10/18/20 11:00 IMPRESSION: Successful CT-guided biopsy of the mass in the left upper lobe as detailed above. Chest X-Ray 10/18/20 13:45 IMPRESSION: No postprocedural pneumothorax. Assessment & Plan - Diagnosis (1) Lung mass Is this a current diagnosis for this admission?: Yes Plan: Awaiting biopsy results, we will make arrangements for patient to see us post discharge about 5 days post discharge. (2) Thrombocytopenia Is this a current diagnosis for this admission?: Yes Plan: Seems resolved. - Time Time Spent with patient: 35 or more minutes - Inpatient Certification Based on my medical assessment, after consideration of the patient's comorbidities, presenting symptoms, or acuity I expect that the services needed warrant INPATIENT care.: Yes I certify that my determination is in accordance with my understanding of Medicare's requirements for reasonable and necessary INPATIENT services [42 CFR 412.3e].: Yes Medical Necessity: Risk of Complication if Not Cared For in Hospital
[2020-10-19] MEDS ORDERED: FUROSEMIDE 40 MG TABLET PO SCH (10:00)
[2020-10-19] MEDS: IPRATROPIUM/ALBUTEROL 0.5-2.5 MG/3 ML AMPUL NEB ONE ×2 (11:56→13:03)
--- NOTE | 2020-10-19 17:46 | PDOC PROGRESS REPORT ---
Subjective Date:: 10/19/20 Subjective:: WINNIE OJEDA is a 65 year old male with a history of pulmonary fibrosis who was previously on home oxygen and hypothyroidism who was admitted 10/12/2020 with acute on chronic respiratory failure secondary to acute CHF exacerbation in the setting of pulmonary fibrosis. Patient seen on 9 rounds. Resting comfortably in bed. O2 sat within normal limits of air. Shortness of breath overall significantly improved. Does complain of bilateral ankle pain and swelling, though has significantly improved. Continue IV Lasix. Elevate legs. Gait compression stockings. Raynaud's with no further complaints at this time. Discussed with nursing no concerns or complaints at this time. Reason For Visit: ACUTE CHRONIC HYPOXIC RESPIRATORY FAILURE,NEW Physical Exam Vital Signs: Temp Pulse Resp BP Pulse Ox 98.1 F 79 18 99/60 L 97 10/19/20 15:22 10/19/20 15:22 10/19/20 15:22 10/19/20 15:22 10/19/20 15:22 Intake & Output 10/18/20 10/19/20 10/20/20 06:59 06:59 06:59 Intake Total 604 708 Output Total 2500 1800 Balance -1896 1092 Weight 103.3 kg 103.4 kg Additional comments: General appearance: PRESENT: no acute distress, cooperative, well-developed, well-nourished Eye exam: EOMI. Mouth exam: PRESENT: moist, tongue midline Respiratory exam: PRESENT: clear to auscultation mariah, symmetrical, unlabored. ABSENT: rales, rhonchi, wheezes Cardiovascular exam: PRESENT: RRR. ABSENT: diastolic murmur, rubs, systolic murmur GI/Abdominal exam: PRESENT: other - Urostomy Extremities exam: PRESENT: full ROM, +1 edema Left > right, overall improved, edema primarily at ankles bilaterally. Without TTP. ABSENT: calf tenderness, clubbing, pedal edema Musculoskeletal exam: PRESENT: ambulatory Neurological exam: PRESENT: alert, awake, oriented to person, oriented to place, oriented to time, oriented to situation, CN II-XII grossly intact. ABSENT: motor sensory deficit Skin exam: PRESENT: dry, intact, warm, other - Chronic venous stasis changes bilateral lower extremities. Large, erythematous well-demarcated plaques bilateral upper extremities. ABSENT: cyanosis Results Laboratory Results: 10/19/20 05:00 10/19/20 05:00 10/19/20 10/19/20 05:00 05:00 WBC 5.9 RBC 5.94 H Hgb 16.6 Hct 52.1 H MCV 88 MCH 28.0 MCHC 31.9 L RDW 16.3 H Plt Count 126 L Sodium 133.9 L Potassium 4.3 Chloride 95 L Carbon Dioxide 32 H Anion Gap 7 BUN 21 H Creatinine 0.77 Est GFR ( Amer) > 60 Glucose 98 Calcium 9.1 10/12/20 10/12/20 10/13/20 18:10 18:10 02:06 Troponin I < 0.012 < 0.012 NT-Pro-B Natriuret Pep 2220 H 10/13/20 10/13/20 10/15/20 10:33 12:35 04:38 Troponin I Cancelled < 0.012 NT-Pro-B Natriuret Pep 1590 H 10/19/20 05:00 Troponin I NT-Pro-B Natriuret Pep 1190 H Impressions: Chest/Abdomen CTA 10/12/20 00:00 IMPRESSION: No evidence of pulmonary embolus. Chronic fibrotic changes bilaterally.. There are 2 rounded mass lesions identified left hemithorax, suspicious for neoplasm. Left pleural reaction or perhaps loculated effusion. Prominent left hilar lymph node, suspicious for regional spread of disease. Left adrenal mass, viewed with suspicion for remote metastatic disease given the pulmonary lesions . Addendum: Prior CT September 15, 2016 has been retrieved. The fibrotic changes were present on that examination. The pleural-based mass lesions and pleural reaction left hemithorax are adverse change from prior. The prominent left hilar lymph node is adverse change from prior.. Lung Biopsy CT 10/18/20 11:00 IMPRESSION: Successful CT-guided biopsy of the mass in the left upper lobe as detailed above. Chest X-Ray 10/18/20 13:45 IMPRESSION: No postprocedural pneumothorax. Assessment and Plan - Diagnosis (1) Acute and chronic respiratory failure with hypoxia Is this a current diagnosis for this admission?: Yes (2) Grade II diastolic dysfunction Is this a current diagnosis for this admission?: Yes (3) Pulmonary hypertension Is this a current diagnosis for this admission?: Yes (4) Lung mass Is this a current diagnosis for this admission?: Yes (5) Pulmonary fibrosis Is this a current diagnosis for this admission?: Yes (6) Secondary polycythemia Is this a current diagnosis for this admission?: Yes (7) Urinary tract infection Is this a current diagnosis for this admission?: Yes (8) Hypothyroidism Is this a current diagnosis for this admission?: Yes (9) Obesity (BMI 30-39.9) Is this a current diagnosis for this admission?: Yes (10) Thrombocytopenia Is this a current diagnosis for this admission?: Yes (11) Rash Is this a current diagnosis for this admission?: Yes - Plan Summary Summary: Acute and chronic respiratory failure with hypoxia: >92% O2 sat on room air. SOB cnt improve. - Multifactorial 2/2 diastolic heart failure, emphysema and pulmonary fibrosis. - Hx pulmonary fibrosis and previously on home oxygen - CT of the chest consistent with chronic fibrotic changes with new masses on the left lower lung concerning for malignancy. - Ct guided biopsy today. Grade II Diastolic Dysfunction: Improvement in SOB and LE edema. Continue IV Lasix. Elevate legs. Initiate compression stockings. Will discharge home with 40 mg p.o. lasix daily. - Echo: Normal LVEF, RV EF midly depressed. Grade II diastolic dysfunction. Severe pulmonary HTN RVSP 72-75 mmHg. - I&O with negative 2L fluid balance - Elevated JVD, bilateral pitting edema on initial exam, improving - proBNP of 2220 -> 1590, repeat tomorrow. - Chest imaging both x-ray and CT showed extensive fibrosis with no significant signs of volume overload - Cnt telemetry - Cnt low dose Toprol XL - Switch to 40mg p.o. BID lasix. - Strict I&O's, daily weights - Cardiac diet and fluid restriction Pulmonary HTN: Echo: Severe pulmonary HTN RVSP 72-75 mmHg. - Likely 2/2 hx pulmonary fibrosis - Likely the cause of Secondary polycythemia monitor on H&H. - Consider pulmonary consult vs out pt pulm f/u. Lung mass: CT chest showed 2 lung masses near left diaphragm, concerning for primary lung cancer. - CT guided biopsy 10/18, awaiting path results - Patient is to follow-up with Dr. Rueda outpatient within 5 days of discharge. - Cnt hold anticoagulation Thrombocytopenia: Plt improved, and stable. Pulmonary fibrosis: known history of fibrosis, previously on home O2. Likely cause Pulm HTN. - CXR/CT advanced pulmonary fibrosis - Dc with home O2 - Consider pulmonary consult vs out pt pulm f/u. Urinary Tract infection: Cnt Ceftriaxone day /. - UA: UTI - UC: E. coli and Proteus mirabilis - BC NGTD. Rash: Large erythematous well-demarcated plaque bilateral upper extremities. - Likely psoriasis, states has been present for years. Associated pruritus. - Initiate emollients. - Given risk of malignancy consider phototherapy versus acitretin therapy in the future. - Would benefit from outpatient PCP vs dermatology f/u. Hypothyroidism: Cnt levothyroxine, close PCP f/u Obesity (BMI 30-39.9): Consulted on diet management. Diastolic dysfunction plays part. Cnt Tx as above. Cnt cardiac diet. PLAN: Pt stable. Pending path results. Follow-up with oncology in outpatient setting. Continue IV Lasix for 1 more day plan to discharge home within 48 hours. - Time Time Spent with patient: 15-24 minutes Anticipated Discharge Disposition: Home, Self Care Anticipated Discharge Timeframe: within 48 hours
[2020-10-19] MEDS: FUROSEMIDE INJ/PF 40 MG/4 ML SDV IV SCH (21:45)
[2020-10-19] MEDS: CEFTRIAXONE SODIUM 1,000 MG in DEXTROSE 5%-WATER 50 ML IV SCH (21:45)
[2020-10-20] MEDS: LEVOTHYROXINE SODIUM 0.1 MG TABLET PO SCH (06:07)
[2020-10-20] MEDS: FAMOTIDINE 20 MG TABLET PO SCH (09:40)
[2020-10-20] MEDS: FUROSEMIDE INJ/PF 40 MG/4 ML SDV IV SCH ×2 (09:40→10:48)
[2020-10-20] MEDS ORDERED: FUROSEMIDE 40 MG TABLET PO SCH (11:00)
[2020-10-20 15:30] VITALS: BP 97/68
--- NOTE | 2020-10-20 19:44 | PDOC DISCHARGE SUMMARY ---
Impression - Admit/DC Date/PCP Admission Date/Primary Care Provider: 10/13/20 00:51 Discharge Date: 10/20/20 - Discharge Diagnosis (1) Acute and chronic respiratory failure with hypoxia Is this a current diagnosis for this admission?: Yes (2) Grade II diastolic dysfunction Is this a current diagnosis for this admission?: Yes (3) Pulmonary hypertension Is this a current diagnosis for this admission?: Yes (4) Lung mass Is this a current diagnosis for this admission?: Yes (5) Pulmonary fibrosis Is this a current diagnosis for this admission?: Yes (6) Secondary polycythemia Is this a current diagnosis for this admission?: Yes (7) Urinary tract infection Is this a current diagnosis for this admission?: Yes (8) Hypothyroidism Is this a current diagnosis for this admission?: Yes (9) Obesity (BMI 30-39.9) Is this a current diagnosis for this admission?: Yes (10) Thrombocytopenia Is this a current diagnosis for this admission?: Yes (11) Rash Is this a current diagnosis for this admission?: Yes - Additional Information Resuscitation Status: Full Code Discharge Diet: Cardiac Discharge Activity: Activity As Tolerated, Balance Activity w/Rest, Weigh Daily Prescriptions: Furosemide [Lasix 20 mg Tablet] 20 mg PO QAM #30 tablet Home Medications: Levothyroxine Sodium [Synthroid 0.1 mg Tablet] 200 mcg PO Q6AM 10/13/20 Furosemide [Lasix 20 mg Tablet] 20 mg PO QAM #30 tablet 10/20/20 History of Present Illiness History of Present Illness: As per admitting HPI: WINNIE OJEDA is a 65 year old male with a history of pulmonary fibrosis who was previously on home oxygen and hypothyroidism now pr esents to the ED with a progressively worsening shortness of breath and leg swelling. Patient states that his shortness of breath was initially with exertion but in the past 2 weeks has worsened to a level where he becomes short of breath even at rest. He also states that he has on and off leg swelling but over the past 2 weeks has been having markedly increased worsening of bilateral leg swelling. He states that he was previously on home oxygen for almost a year for pulmonary fibrosis but discontinued it by himself stating that he got tired of it. He does not remember how much oxygen he was on. He has been having occasional cough productive of scanty sputum but denies any chest pain, fever, chills, nausea, vomiting, dizziness, palpitation, orthopnea, PND, weakness of extremities or any change in his bowel habits. Hospital Course Hospital Course: Acute and chronic respiratory failure with hypoxia: Overall improved. Notable O2 sat 92% on RA. Desats with ambulation. Dc home with home O2. - Multifactorial 2/2 diastolic heart failure, emphysema and pulmonary fibrosis. - Hx pulmonary fibrosis and previously on home oxygen - CT of the chest consistent with chronic fibrotic changes with new masses on the left lower lung concerning for malignancy. - Ct guided biopsy today. Grade II Diastolic Dysfunction: Improvement in SOB and LE edema. Elevate legs. Dc home Lasix p.o. - Echo: Normal LVEF, RV EF midly depressed. Grade II diastolic dysfunction. Severe pulmonary HTN RVSP 72-75 mmHg. - I&O with negative 2L fluid balance - Elevated JVD, bilateral pitting edema on initial exam, improving - proBNP of 2220 -> 1590, repeat tomorrow. - Chest imaging both x-ray and CT showed extensive fibrosis with no significant signs of volume overload - Cnt telemetry - Cnt low dose Toprol XL - Switch to 40mg p.o. BID lasix. - Strict I&O's, daily weights - Cardiac diet and fluid restriction Pulmonary HTN: Echo: Severe pulmonary HTN RVSP 72-75 mmHg. - Likely 2/2 hx pulmonary fibrosis - Likely the cause of Secondary polycythemia monitor on H&H. - REcommend PCP f/u and out pt pulm f/u. Lung mass: CT chest showed 2 lung masses near left diaphragm, concerning for primary lung cancer. - CT guided biopsy 10/18, awaiting path results - Patient is to follow-up with Dr. Rueda outpatient within 5 days of discharge. - Cnt hold anticoagulation Thrombocytopenia: Plt improved, and stable. Pulmonary fibrosis: known history of fibrosis, previously on home O2. Likely cause Pulm HTN. - CXR/CT advanced pulmonary fibrosis - Dc with home O2 - Consider pulmonary consult vs out pt pulm f/u. Urinary Tract infection: Completed full course ceftriaxone. - UA: UTI - UC: E. coli and Proteus mirabilis - BC NGTD. Rash: Large erythematous well-demarcated plaque bilateral upper extremities. - Likely psoriasis, states has been present for years. Associated pruritus. - Initiate emollients. - Given risk of malignancy consider phototherapy versus acitretin therapy in the future. - Would benefit from outpatient PCP vs dermatology f/u. Hypothyroidism: Cnt levothyroxine, close PCP f/u Obesity (BMI 30-39.9): Consulted on diet management. Diastolic dysfunction plays part. Cnt Tx as above. Cnt cardiac diet. Physical Exam Vital Signs: Temp Pulse Resp BP Pulse Ox 97.5 F 84 18 97/68 L 92 10/20/20 15:26 10/20/20 15:26 10/20/20 15:26 10/20/20 15:26 10/20/20 15:26 Intake & Output 10/19/20 10/20/20 10/21/20 06:59 06:59 06:59 Intake Total 708 1100 Output Total 1800 2350 Balance -1092 -1250 Weight 103.4 kg 97.8 kg Additional comments: General appearance: PRESENT: no acute distress, cooperative, well-developed, well-nourished Eye exam: EOMI. Mouth exam: PRESENT: moist, tongue midline Respiratory exam: PRESENT: clear to auscultation mariah, symmetrical, unlabored. ABSENT: rales, rhonchi, wheezes Cardiovascular exam: PRESENT: RRR. ABSENT: diastolic murmur, rubs, systolic murmur GI/Abdominal exam: PRESENT: other - Urostomy Extremities exam: PRESENT: full ROM, +1 edema Left > right, overall improved, edema primarily at ankles bilaterally. Without TTP. ABSENT: calf tenderness, clubbing, pedal edema Musculoskeletal exam: PRESENT: ambulatory Neurological exam: PRESENT: alert, awake, oriented to person, oriented to place, oriented to time, oriented to situation, CN II-XII grossly intact. ABSENT: motor sensory deficit Skin exam: PRESENT: dry, intact, warm, other - Chronic venous stasis changes bilateral lower extremities. Large, erythematous well-demarcated plaques bilateral upper extremities. ABSENT: cyanosis Results Laboratory Results: WBC 5.9 10^3/uL (4.0-10.5) 10/19/20 05:00 RBC 5.94 10^6/uL (4.35-5.55) H 10/19/20 05:00 Hgb 16.6 g/dL (13.5-17.0) 10/19/20 05:00 Hct 52.1 % (37.9-51.0) H 10/19/20 05:00 MCV 88 fl (80-97) 10/19/20 05:00 MCH 28.0 pg (27.0-33.4) 10/19/20 05:00 MCHC 31.9 g/dL (32.0-36.0) L 10/19/20 05:00 RDW 16.3 % (11.5-14.0) H 10/19/20 05:00 Plt Count 126 10^3/uL (150-450) L 10/19/20 05:00 Lymph % (Auto) 20.6 % (13-45) 10/13/20 08:08 [place] % (Auto) 10.2 % (3-13) 10/13/20 08:08 Eos % (Auto) 0.9 % (0-6) 10/13/20 08:08 Baso % (Auto) 0.4 % (0-2) 10/13/20 08:08 Absolute Neuts (auto) 3.7 10^3/uL (1.7-8.2) 10/13/20 08:08 Absolute Lymphs (auto) 1.1 10^3/uL (0.5-4.7) 10/13/20 08:08 Absolute Monos (auto) 0.6 10^3/uL (0.1-1.4) 10/13/20 08:08 Absolute Eos (auto) 0.1 10^3/uL (0.0-0.6) 10/13/20 08:08 Absolute Basos (auto) 0.0 10^3/uL (0.0-0.2) 10/13/20 08:08 Seg Neutrophils % 67.9 % (42-78) 10/13/20 08:08 PT 14.4 SEC (11.4-15.4) 10/18/20 06:55 INR 1.10 10/18/20 06:55 Carbonic Acid 1.17 mmol/L (1.05-1.35) 10/12/20 20:53 HCO3/H2CO3 Ratio 21:1 10/12/20 20:53 ABG pH 7.42 (7.35-7.45) 10/12/20 20:53 ABG pCO2 38.9 mmHg (35-45) 10/12/20 20:53 ABG pO2 62.4 mmHg (80-100) L 10/12/20 20:53 ABG HCO3 24.8 mmol/L (20-24) H 10/12/20 20:53 ABG Total CO2 26.0 mmol/L (23-27) 10/12/20 20:53 ABG O2 Saturation 92.4 % (94-98) L 10/12/20 20:53 ABG Base Excess 0.6 mmol/L 10/12/20 20:53 FiO2 6LNC 10/12/20 20:53 Sodium 133.9 mmol/L (137-145) L 10/19/20 05:00 Potassium 4.3 mmol/L (3.6-5.0) 10/19/20 05:00 Chloride 95 mmol/L (98-107) L 10/19/20 05:00 Carbon Dioxide 32 mmol/L (22-30) H 10/19/20 05:00 Anion Gap 7 (5-19) 10/19/20 05:00 BUN 21 mg/dL (7-20) H 10/19/20 05:00 Creatinine 0.77 mg/dL (0.52-1.25) 10/19/20 05:00 Est GFR ( Amer) > 60 (>60) 10/19/20 05:00 Est GFR (MDRD) Non-Af > 60 (>60) 10/19/20 05:00 Glucose 98 mg/dL (75-110) 10/19/20 05:00 Hemoglobin A1c % 5.4 % (4.7-6.0) 10/13/20 08:08 Lactic Acid 1.6 mmol/L (0.7-2.1) 10/12/20 18:10 Calcium 9.1 mg/dL (8.4-10.2) 10/19/20 05:00 Magnesium 1.7 mg/dL (1.6-2.3) 10/13/20 08:08 Total Bilirubin 2.0 mg/dL (0.2-1.3) H 10/12/20 18:10 Direct Bilirubin 0.9 mg/dL (0.0-0.4) H 10/12/20 18:10 Neonat Total Bilirubin Not Reportable 10/12/20 18:10 Neonat Direct Bilirubin Not Reportable 10/12/20 18:10 Neonat Indirect Bili Not Reportable 10/12/20 18:10 AST 29 U/L (17-59) 10/12/20 18:10 ALT 16 U/L (<50) 10/12/20 18:10 Alkaline Phosphatase 89 U/L (38-126) 10/12/20 18:10 Troponin I < 0.012 ng/mL 10/13/20 12:35 NT-Pro-B Natriuret Pep 1190 pg/mL (<125) H 10/19/20 05:00 Total Protein 7.2 g/dL (6.3-8.2) 10/12/20 18:10 Albumin 3.8 g/dL (3.5-5.0) 10/12/20 18:10 TSH 13.70 uIU/mL (0.47-4.68) H 10/13/20 08:08 Free T4 0.76 ng/dL (0.78-2.19) L 10/13/20 08:08 Free T3 pg/mL 1.57 pg/mL (2.77-5.27) L 10/13/20 08:08 Urine Color ELIZABETH 10/12/20 20:45 Urine Appearance CLOUDY 10/12/20 20:45 Urine pH 7.0 (5.0-9.0) 10/12/20 20:45 Ur Specific Iron 1.015 10/12/20 20:45 Urine Protein 100 mg/dL (NEGATIVE) H 10/12/20 20:45 Urine Glucose (UA) NEGATIVE mg/dL (NEGATIVE) 10/12/20 20:45 Urine Ketones NEGATIVE mg/dL (NEGATIVE) 10/12/20 20:45 Urine Blood SMALL (NEGATIVE) H 10/12/20 20:45 Urine Nitrite NEGATIVE (NEGATIVE) 10/12/20 20:45 Urine Bilirubin NEGATIVE (NEGATIVE) 10/12/20 20:45 Urine Urobilinogen 4.0 mg/dL (<2.0) H 10/12/20 20:45 Ur Leukocyte Esterase MODERATE (NEGATIVE) H 10/12/20 20:45 Urine WBC (Auto) 66 /HPF 10/12/20 20:45 Urine RBC (Auto) 21 /HPF 10/12/20 20:45 U Hyaline Cast (Auto) 2 /LPF 10/12/20 20:45 Urine Bacteria (Auto) 3+ /HPF 10/12/20 20:45 Urine WBC Clumps OCC /HPF 10/12/20 20:45 Urine Mucus (Auto) FEW /LPF 10/12/20 20:45 Urine Ascorbic Acid NEGATIVE (NEGATIVE) 10/12/20 20:45 Yefri Human Metapneumo PCR NOT DETECTED (NOT DETECT) 10/12/20: Heparin-induced Plt Ab 0.102 OD (0.000-0.40) 10/15/20 08:40 Adenovirus (PCR) NOT DETECTED (NOT DETECT) 10/12/20: B. pertussis DNA (PCR) NOT DETECTED (NOT DETECT) 10/12/20: B.parapertussis DNA PCR NOT DETECTED (NOT DETECT) 10/12/20 C. pneumoniae DNA (PCR) NOT DETECTED (NOT DETECT) 10/12/20 Coronavirus OC43 (PCR) NOT DETECTED (NOT DETECT) 10/12/20 Coronavirus HKU1 (PCR) NOT DETECTED (NOT DETECT) 10/12/20 Coronavirus 229E (PCR) NOT DETECTED (NOT DETECT) 10/12/20 Coronavirus NL63 (PCR) NOT DETECTED (NOT DETECT) 10/12/20 Influenza A (H1) PCR NOT DETECTED (NOT DETECT) 10/12/20 Influ A (H1N1/09) PCR NOT DETECTED (NOT DETECT) 10/12/20 Influenza A (H3) PCR NOT DETECTED (NOT DETECT) 10/12/20 Influenza Type A (PCR) NOT DETECTED (NOT DETECT) 10/12/20 Influenza Type B (PCR) NOT DETECTED (NOT DETECT) 10/12/20 M. pneumoniae (PCR) NOT DETECTED (NOT DETECT) 10/12/20 Parainfluenza 1 (PCR) NOT DETECTED (NOT DETECT) 10/12/20 Parainfluenza 2 (PCR) NOT DETECTED (NOT DETECT) 10/12/20 Parainfluenza 3 (PCR) NOT DETECTED (NOT DETECT) 10/12/20 Parainfluenza 4 (PCR) NOT DETECTED (NOT DETECT) 10/12/20 RSV (PCR) NOT DETECTED (NOT DETECT) 01/16/21 21:27 Entero/Rhino (PCR) NOT DETECTED (NOT DETECT) 10/12/20 21:27 SARS-CoV-2 (PCR) NOT DETECTED (NOT DETECT) 10/12/20 21:27 10/12/20 10/12/20 10/13/20 18:10 18:10 02:06 Troponin I < 0.012 < 0.012 NT-Pro-B Natriuret Pep 2220 H 10/13/20 10/13/20 10/15/20 10:33 12:35 04:38 Troponin I Cancelled < 0.012 NT-Pro-B Natriuret Pep 1590 H 10/19/20 05:00 Troponin I NT-Pro-B Natriuret Pep 1190 H Impressions: Chest/Abdomen CTA 10/12/20 00:00 IMPRESSION: No evidence of pulmonary embolus. Chronic fibrotic changes bilaterally.. There are 2 rounded mass lesions identified left hemithorax, suspicious for neoplasm. Left pleural reaction or perhaps loculated effusion. Prominent left hilar lymph node, suspicious for regional spread of disease. Left adrenal mass, viewed with suspicion for remote metastatic disease given the pulmonary lesions . Addendum: Prior CT September 15, 2016 has been retrieved. The fibrotic changes were present on that examination. The pleural-based mass lesions and pleural reaction left hemithorax are adverse change from prior. The prominent left hilar lymph node is adverse change from prior.. Chest X-Ray 10/12/20 18:28 IMPRESSION: Asymmetric left lung opacities move concerning for acute infection. This may be superimposed on some mild chronic fibrotic change. Chest X-Ray 10/18/20 00:00 IMPRESSION: No postprocedural pneumothorax. Lung Biopsy CT 10/18/20 11:00 IMPRESSION: Successful CT-guided biopsy of the mass in the left upper lobe as detailed above. Chest X-Ray 10/18/20 13:45 IMPRESSION: No postprocedural pneumothorax. Plan Plan of Treatment: Cnt lasix p.o. F/u oncology within 5 days dc from hospital. Dc home with home O2 and home health. F/u PCP within 2 week dc from hospital. Time Spent: Greater than 30 Minutes Stroke Is this a Stroke Patient?: No Acute Heart Failure Is this a Heart Failure Patient?: No
== END 2020-10-20 16:25 | disposition home health service (06) | DRG 180 ==
LOC: ER 17:12 → EH 10-13 00:51 → 4N 10-13 02:38
PROVIDERS: ADMIT Student in an Organized Health Care Education/Training Program; ATTEND Physician Assistant
PROC: 0BBG3ZX Excision of Left Upper Lung Lobe, Percutaneous Approach, Diagnostic (ICD-10-PCS; principal; 2020-10-13)
DX: C34.12 Malignant neoplasm of upper lobe, left bronchus or lung (principal); J96.21 Acute and chronic respiratory failure with hypoxia; I50.31 Acute diastolic (congestive) heart failure; N39.0 Urinary tract infection, site not specified; J84.10 Pulmonary fibrosis, unspecified; J43.9 Emphysema, unspecified; Z20.822 Contact with and (suspected) exposure to COVID-19; E03.9 Hypothyroidism, unspecified; I50.810 Right heart failure, unspecified; I27.81 Cor pulmonale (chronic); D75.1 Secondary polycythemia; E66.9 Obesity, unspecified; I87.8 Other specified disorders of veins; B96.20 Unspecified Escherichia coli [E. coli] as the cause of diseases classified elsewhere; B96.4 Proteus (mirabilis) (morganii) as the cause of diseases classified elsewhere; I27.29 Other secondary pulmonary hypertension; Z92.21 Personal history of antineoplastic chemotherapy; Z87.891 Personal history of nicotine dependence; Z79.890 Hormone replacement therapy; Z90.49 Acquired absence of other specified parts of digestive tract; Z93.6 Other artificial openings of urinary tract status; Z99.81 Dependence on supplemental oxygen; Z85.51 Personal history of malignant neoplasm of bladder; Z87.820 Personal history of traumatic brain injury; L29.9 Pruritus, unspecified
CPT/HCPCS: 32408; 36415; 71045; 71275; 80048; 80053; 81001; 82803; 83036; 83605; 83735; 83880; 84439; 84443; 84481; 84484; 85025; 85027; 85610; 86022; 87040; 87086; 87088; 87186; 88305; 88341; 88342; 93005; 93010; 93306; 94640; 96374; 96375; 99285; 0202U; J0456; J0696; J1650; J1940; J2250; J3010; J7060